=== PATIENT | male | born 1945 | race Caucasian/White ===

== ENCOUNTER 2018-05-08 11:41 | Inpatient (IN) | payer MEDICARE, SELFPAY ==
[2018-05-08] VITALS (16 sets, daily range): BP systolic 113–132; BP diastolic 80–91; PULSE 104–142; RESP 11–20; TEMP 36.6–36.9; O2SAT 97–100; BMI 36.8; BMI 37.6; BMI 37.7
--- NOTE | 2018-05-08 12:24 | EKG12_ITS ---
Test Reason : A FIB Blood Pressure : / mmHG Vent. Rate : 114 BPM Atrial Rate : 119 BPM P-R Int : 000 ms QRS Dur : 094 ms QT Int : 334 ms P-R-T Axes : 000 -04 036 degrees QTc Int : 460 ms Atrial fibrillation with rapid ventricular response with premature ventricular or aberrantly conducte d complexes Septal infarct , age undetermined Abnormal ECG When compared with ECG of 13-NOV-2009 19:53, Atrial fibrillation has replaced Sinus rhythm Vent. rate has increased BY 40 BPM Septal infarct is now Present T wave inversion no longer evident in Inferior leads Confirmed by HEATHER RUBIN ([id number]), metropolitan editor DALLAS SOLER ([id number]) on 05/17/2018 5:07:18 PM Referred By: JARAD GUTIERREZ Confirmed By:HEATHER RUBIN
--- NOTE | 2018-05-08 12:25 | RAD_ITS ---
STUDY: X-RAY CHEST REASON FOR EXAM: Male, 72 years old. Cough TECHNIQUE: Frontal and lateral view COMPARISON: None. FINDINGS: Sternotomy wires are noted. The lungs are expanded. Pulmonary interstitial prominence, right more than left. Normal size heart. Normal mediastinum and ryanne. Normal visualized pulmonary arteries. Normal visualized aortic arch and descending thoracic aorta. Degenerative changes of the thoracic spine. Normal visualized ribs, clavicles, and shoulders. There is no demonstrated abnormality of the visualized soft tissue structures of the upper abdomen. RAD/Chest PA and Lateral IMPRESSION: Bilateral pulmonary interstitial prominence, right more than left. Electronically Signed: Odilon Lombardi DO at 13:31 EST Tel [phone], Service support ,
--- NOTE | 2018-05-08 12:28 | ED.DCSUM_ITS ---
- ER Visit Summary Date of Service: 05/08/18 Chief Complaint: Cough, fever History of Present Illness: The patient is a 72 M 2-day history of worsening cough mild sputum fever T-max 100.1. Chest tightness. Diarrhea for the past 2 days, no recent antibiotics. Nausea vomiting yesterday, no hematemesis. Re ports myalgias. No flu vaccine this year. History of atrial fibrillation on just aspirin and Plavix, history of GI bleed. History of coronary disease and [place] followed by [place]. Went to urgent care sent here due to heart rate 150s. Did not take his A. fib medications this morning. No current nausea. Physical Examination: General: Alert and oriented ?3, no acute distress HEENT: Normocephalic, atraumatic. Moist mucosa membranes Neck: supple, nontender. Cardiovascular: Irregularly irregular, no murmurs Respiratory: Normal breath sounds, symmetric, no distress Abdomen: Soft, nontender, nondistended Extremities: Nontender, minimum lower extremity edema, pulses intact ?4 Neuro: no focal neurological deficits. Test Results: EKG: A. fib rate of 114, no ST or T wave changes. PVCs noted. White count 6.5 hemoglobin 0.7. Creatinine 1.39 troponin 0 0.122. Chest x-ray bilateral lower infiltrates. Influenza negative. Emergency Department Course and Treatment: Patient presents with influenza symptoms along with productive sputum. Does complain of chest aches with his cough. Cardiac history. Cardiac workup initiated. EKG does confirm A. fib with RVR however rate 119 on EKG during monitoring fluctuates from 100s-110s. He did not take his morning metoprolol this was ordered. Chest x-ray notes bilateral lower lobe infiltrate troponin also elevated 0.122. Likely from cardiac strain. White count 6.5. Creatinine 1.39. Flu did return negative, however with pre-valence there is possibility of false negative he is 2 days into symptoms and present with influenza-like symptoms he is given Tamiflu. He does not meet sepsis criteria. He was given Rocephin and Zithromax for community-acquired pneumonia. Aspirin was given due to elevated troponin. [facility] is [facility], will [facility] with the [facility] to stay at this hospital. [facility] cleared patient stay here. Spoke with Dr. Kimball for admission. Discussed heart rate 110s-120s on evaluation. He will manage as an inpatient no additional medicines at this time. Patient with his GI bleed sensitivities not want any additional anticoagulate at this time. Admitted to PCU. Treatment Plan: [] Disposition: Admission Impression: 1. Commit acquired pneumonia 2. A. fib with RVR 3. Chest pain 4. Elevated troponin 5. Influenza-like symptoms This note was generated with [employer] dictation software. It may contain incorrect words, spelling, and punctuation that were not noted in review of the chart prior to signing ED Disposition - Plan for ED Patient: Disposition: Acute Care Hospital [facility] Diagnosis: Community acquired pneumonia, Atrial fibrillation with RVR, Chest pain, Elevated troponin, Influenza-like symptoms Referrals: Fortunato Tesfaye MD [Primary Care Provider] -
[2018-05-08 12:48] LABS: Anion Gap 8 (5-15); BUN 25 mg/dL (7-18); Calcium,Total 8.3 mg/dL (8.5-10.1); Chloride 106 mmol/L (98-107); Creatinine, Serum 1.39 mg/dL (0.70-1.30); EST Glomerular Filtration Rate 54 mL/min (>60); Est Glom Filt Rate - Afr Amer 65 mL/min (>60); Estimated Creatinine Clearance 65.54 ml/min; Glucose 115 mg/dL (74-106); Potassium 3.9 mmol/L (3.5-5.1); Sodium Level 134 mmol/L (136-145)
[2018-05-08 12:54] LABS: Absolute Lymphocyte Count 0.53 X10^3/ul (0.83-4.51); Basophil# 0.01 X10^3/uL; Basophil% 0.2 % (0-1); Eosinophil# 0.03 X10^3/uL; Eosinophils% 0.5 % (0-5); Hematocrit 38.2 % (40-54); Hemoglobin 11.7 g/dl (13.0-16.5); Lymphocyte # 0.53 X10^3/ul (4.0); Lymphocyte % 8.2 % (19-41); Mean Corp Hgb Conc 30.6 g/gl (32-36); Mean Corpuscular Hgb 23.1 pg (27.0-32.0); Mean Corpuscular Volume 75.5 fL (80-94); Monocyte# 0.88 X10^3/uL; Monocyte% 13.6 % (0-10); Neutrophil # 5.03 X10^3/uL (2.7-7.7); Neutrophil % 77.3 % (47-70); Platelet Count 180 K/mm3 (150-450); RBC Distribution Width CV 19.8 % (11.6-14.6); RBC Distribution Width SD 54.1 fl (35.1-43.9); Red Blood Count 5.06 M/mm3 (4.6-6.2); White Blood Count 6.5 K/mm3 (4.4-11.0)
[2018-05-08 12:56] LABS: Differential Indicated SCAN CRITERIA MET; POSITIVE COUNT NO; POSITIVE DIFFERENTIAL YES; POSITIVE MORPHOLOGY NO
[2018-05-08 13:17] LABS: Anisocytosis RARE; Differential Comment SCANNED; Hypochromasia 1+; Microcytosis 1+; Platelet Estimate ADEQUATE (ADEQ)
--- NOTE | 2018-05-08 13:43 | ED.RN ---
Pt assisted to wc then to bathroom. He was able to use bathroom without assist but upon returning to pt was noticeably weakened. He tolerated returning to bed with assist. Physician aware that pt did not tolerate ambulation or standing well.
[2018-05-08] MEDS: Ceftriaxone 1 GM/50 ML BAG IV (13:45)
[2018-05-08] MEDS: Metoprolol Tartrate 100 MG Tablet PO ×2 (13:51→22:47)
[2018-05-08] MEDS: Oseltamivir Phosphate 75 MG Capsule PO (13:51)
[2018-05-08] MEDS: Aspirin 325 MG Tablet PO (13:52)
--- NOTE | 2018-05-08 14:04 | NURSING ---
CALLED [facility]. TALKED TO [facility]. SHE IS REQUESTING CHART TO BE FAXED BEFORE WE CAN TALK TO INTAKE PERSON. FAX [phone]
[2018-05-08 14:05] LABS: International Normalized Ratio 1.2; Prothrombin Time (Protime)PT. 15.3 SECONDS (11.7-14.9)
[2018-05-08 14:06] LABS: Partial Thromboplast Time 37.2 Seconds (24.1-36.2)
--- NOTE | 2018-05-08 14:20 | NURSING ---
FAXED CHART TO [facility]. LABS, RAD, EKG, TSHEET, ECHART AND DR DEJESUS
--- NOTE | 2018-05-08 14:47 | NURSING ---
CALLED [facility]. THEY RECEIVED THE FAX REPORT
--- NOTE | 2018-05-08 14:52 | NURSING ---
[facility] CALL[facility] ER AND G[facility] FOR ADMISSION TO FLOOR. [facility] STATED THEY WILL SET UP FOLLOW UP WITH PT TOMORROW.
--- NOTE | 2018-05-08 14:54 | NURSING ---
DR SANDI CLARK
--- NOTE | 2018-05-08 15:13 | PCM.HP.STD ---
<Matthew Person - Last Filed: 05/08/18 15:13> Problem List (1) Atrial fibrillation with RVR Status: Acute (2) Viral URI Status: Acute (3) Elevated troponin Status: Acute (4) CHF (congestive heart failure) Status: Chronic (5) COPD (chronic obstructive pulmonary disease) Status: Chronic (6) HTN (hypertension) Status: Chronic (7) CAD (coronary artery disease) Status: Acute (8) HLD (hyperlipidemia) Status: Acute (9) Diabetes Status: Acute History of Present Illness Date of Admission: 05/08/18 Chief Complaint: tachycardia The patient is a 72 year old M with pmhx of Afib, CHF, CAD with prior CABG and SD's, COPD, HTN, HLD, DMt2, who was sent to the ER from urgent care with tachycardia rate into the 150 range. He had gone to the urgent care with complaining of 3 days of nonproductive cough, myalgias, nausea, vomiting, diarrhea, and SOB. He also checked his temp at home as he felt feverish and noted it to be 100.4. He has not noticed increased edema, PND, or orthopnea. He Does not have a fever here. He has been somewhat lightheaded, though he does not feel palpitations. He was given metoprolol in the ER but still has a rate into the 130s on the monitor. [] Past Medical History Past Medical History (Chronic Problems): Chronic Problems CHF (congestive heart failure) (Chronic) COPD (chronic obstructive pulmonary disease) (Chronic) HTN (hypertension) (Chronic) Allergies codeine Adverse Reaction (Verified 05/08/18 11:42) Unknown Home Medications: Ambulatory Orders Medication Instructions Recorded Albuterol Inhaler [Ventolin Hfa 2 puff INHALATION Q6H PRN PRN 05/08/18 (SP)] Benzonatate 100 mg PO Q6H PRN 05/08/18 Clopidogrel Bisulfate [Plavix] 75 mg PO DAILY 05/08/18 Furosemide [Lasix] 40 mg PO DAILY 05/08/18 Isosorbide Mononitrate [Imdur] 60 mg PO DAILY 05/08/18 Metformin HCl 500 mg PO DAILY 05/08/18 Metoprolol Tartrate [Lopressor 100 mg PO BID 05/08/18 (Beta Crystal)] [place]-3/Dha/Epa/Fish Oil [Fish Oil 1 each PO DAILY 05/08/18 1,000 mg Softgel] Ranolazine [Ranexa] 1,000 mg PO DAILY 05/08/18 Sucralfate 1 gm PO TID 05/08/18 Tamsulosin HCl [Flomax] 0.4 mg PO DAILY 05/08/18 Topiramate [Topamax] 150 mg PO BID 05/08/18 Vitamin B Complex/Folic Acid 1 tab PO DAILY 05/08/18 [B-Stress Capsules] Surgical History: no surgical history Psychiatric History: No pertinent psych hx Lives: Alone Smoking Status: Former smoker Tobacco Use: Non-smoker Alcohol: None Drugs: None - *Family History Maternal History Items: Cancer Paternal History Items: Heart Disease Review of Systems Constitutional: Denies: Chills, Fever, Weight Change HEENT: Denies: Head Aches, Sinus Congestion, Sinus Drainage Cardiovascular: Denies: Chest Pain, Palpitations Respiratory: Reports: Cough, Shortness of Breath, Shortness of breath at rest, Shortness of breath upon exertion. Denies: Sputum production, Wheezing Gastrointestinal: Denies: Abdominal Pain, Nausea, Vomiting Genitourinary: Denies: Dysuria Musculoskeletal: Denies: Joint Pain, Joint Tenderness Skin: Denies: Rash, Wounds Neurological: Denies: Numbness, Tingling, Focal weakness Psychiatric: Denies: Anxiety, Depression, Homicidal Ideations, Suicidal Ideations Hematologic/ Lymphatic: Denies: Easy Bruising, Easy Bleeding VTE Information - Inpt Only VTE Present on Admission: No VTE Mechan Device Prophylaxis: None VTE Pharm Prophylaxis ordered?: Yes Patient Problems: Active and Suspected Problems Community acquired pneumonia (Acute) Atrial fibrillation with RVR (Acute) Chest pain (Acute) Elevated troponin (Acute) Influenza-like symptoms (Acute) CAD (coronary artery disease) (Acute) HLD (hyperlipidemia) (Acute) Diabetes (Acute) Viral URI (Acute) - Physical Exam General: Alert, Oriented x3, Cooperative HEENT: Atraumatic, PERRLA, EOMI, Normocephalic Neck: Supple, No JVD, Negative Carotid Bruits Lungs: Clear to auscultation, Normal air movement, Rales - fine rales right lung upper and lower conroy. No wheezing Cardiovascular: Regular rate, No murmurs Abdomen: Bowel Sounds Present, Soft, Non Tender Extremities: No edema, Capillary Refill Less than 3 Seconds Skin: No rashes, No breakdown Musculoskeletal: No Tenderness to Palpation of Joints or Extremities Neurological: Cranial nerves II-XII grossly intact Psych/Mental Status: Normal Affect, Appropriate, Alert and oriented to time, place, person, mood and affect Vital Signs Temp Pulse Resp BP Pulse Ox 98.0 F 108 H 17 123/86 H 99 05/08/18 14:40 05/08/18 14:59 05/08/18 14:59 05/08/18 14:59 05/08/18 14:59 Oxygen Delivery Method Room Air Weight: 326 lb 15.128 oz Body Mass Index (BMI) 36.8 Microbiology Past 72 Hours 05/08/18 12:55 Influenza Types A,B Direct FA (JOCY) - Final Mucosa - Nose Laboratory Tests Past 24 Hrs 05/08/18 05/08/18 05/08/18 11:55 11:55 13:35 WBC 6.5 RBC 5.06 Hgb 11.7 L Hct 38.2 L MCV 75.5 L MCH 23.1 L MCHC 30.6 L RDW 19.8 H RDW Differential 54.1 H Plt Count 180 MPV 10.0 Immature Gran % (Auto) 0.200 Neut % (Auto) 77.3 H Lymph % (Auto) 8.2 L [place] % (Auto) 13.6 H Eos % (Auto) 0.5 Baso % (Auto) 0.2 Absolute Neuts (auto) 5.0 Absolute Lymphs (auto) 0.53 L Total Counted Not Reportable Differential Comment SCANNED Platelet Estimate ADEQUATE Hypochromasia 1+ Anisocytosis RARE Microcytosis 1+ PT 15.3 H INR 1.2 APTT 37.2 H Sodium 134 L Potassium 3.9 Chloride 106 Carbon Dioxide 20.0 L Anion Gap 8 BUN 25 H Creatinine 1.39 H Estim Creat Clear Calc 65.54 Est GFR (MDRD) Af Amer 65 Est GFR (MDRD) Non-Af 54 L BUN/Creatinine Ratio 18.0 Glucose 115 H Calcium 8.3 L Troponin I 0.122 H Assessment/Plan All Active Problems Community acquired pneumonia (Acute) Atrial fibrillation with RVR (Acute) Chest pain (Acute) Elevated troponin (Acute) Influenza-like symptoms (Acute) CAD (coronary artery disease) (Acute) HLD (hyperlipidemia) (Acute) Diabetes (Acute) Viral URI (Acute) 1. Afib with RVR, suspect 2/2 acute viral syndrome - given additional metoprolol in the ER. Presented from urgent care with rate into the 150s. Plan to continue increased metoprolol at this point and will consider additional agents if he remains uncontrolled. Troponin is indeterminate, will cycle. Obtain echocardiogram. 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 Maintain on tele. -He does not take oral anticoagulation 2/2 hx of GI bleed. 2. Acute viral URI - presents with viral flu like symptoms. Flu screen was negative and symptoms have gone on for the past 3 days. He was given tamiflu in the ER. will defer further tx and obtain respiratory panel. Provide supportive care. He is not hypoxic and not wheezy. CXR reviewed and without clear acute process. 3. COPD - no acute exacerbation. continue albuterol. 4. Hx CHF unclear subtype - not acute exacerbation at this time. Continue home lasix. 5. Suspected CKD stage 3 - unclear baseline. Will trend. 6. Mild anemia with microcytosis - trend 7. CAD - prior CABG. Continue plan as per #1 cycle enzymes and get echo. 8. HTN, HLD - home meds 9. DMt2 - hold metformin with unclear renal function and provide SSI. DVT ppx: heparin DC planning: ptot, lives alone. likely no home going needs. This patient was seen by Matthew Person PA-C under the supervision of Doctor Jigar. <Ke Kimball - Last Filed: 05/08/18 15:54> Problem List (1) Atrial fibrillation with RVR Status: Acute (2) Elevated troponin Status: Acute History of Present Illness Chief Complaint: malaise, fever, diarrhea, vomiting, myalgias. The patient is a 72 year old M presents with a 3-day history of days, vomiting, diarrhea, myalgias. Presented to the emergency room and was found to be in atrial fibrillation with RVR. Did take his daily dose of metoprolol which did help his heart rate but still maintained into the 1 teens and 120s. Chest x-ray report was concerning for infiltrates and patient did receive Tamiflu (despite negative rapid flu) Rocephin and azithromycin. Troponins were elevated as well at 0.1-2. Patient was not having chest pain. Patient does have known history of CAD with a CABG in the past. [] Past Medical History Medical History: Medical History (Last Updated 05/08/18 @ 15:49 by Ke Kimball DO) CAD (coronary artery disease) I25.10 CHF (congestive heart failure) I50.9 COPD (chronic obstructive pulmonary disease) J44.9 HTN (hypertension) I10 Allergies codeine Adverse Reaction (Verified 05/08/18 11:42) Unknown Surgical History: Surgical History (Last Updated 05/08/18 @ 15:48 by Ke Kimball DO) Hx of CABG Z95.1 Psychiatric History: No pertinent psych hx Lives: Alone Smoking Status: Former smoker Tobacco Use: Non-smoker Alcohol: None Drugs: None - *Family History Maternal History Items: Cancer Paternal History Items: Heart Disease Review of Systems Constitutional: Denies: Chills, Fever, Weight Change HEENT: Denies: Head Aches, Sinus Congestion, Sinus Drainage Cardiovascular: Denies: Chest Pain, Palpitations Respiratory: Reports: Cough, Shortness of Breath, Shortness of breath at rest, Shortness of breath upon exertion. Denies: Sputum production, Wheezing Gastrointestinal: Denies: Abdominal Pain, Nausea, Vomiting Genitourinary: Denies: Dysuria Musculoskeletal: Denies: Joint Pain, Joint Tenderness Skin: Denies: Rash, Wounds Neurological: Denies: Focal weakness, Numbness, Tingling Psychiatric: Denies: Anxiety, Depression, Homicidal Ideations, Suicidal Ideations Hematologic/ Lymphatic: Denies: Easy Bruising, Easy Bleeding, Hx of blood clot VTE Information - Inpt Only VTE Present on Admission: No VTE Mechan Device Prophylaxis: None VTE Pharm Prophylaxis ordered?: Yes - Physical Exam General: Alert, Cooperative, No apparent distress HEENT: Atraumatic, Normocephalic Neck: No Nodes, Thyroid Normal Size and Texture Lungs: Rales, - - Clear on the left Cardiovascular: Irregular Rate, Tachycardic Abdomen: Bowel Sounds Present, Soft, Non Tender, Non-Distended Extremities: No edema, No Calf Tenderness Skin: No rashes, No breakdown Musculoskeletal: No Tenderness to Palpation of Joints or Extremities, No Muscle Wasting Psych/Mental Status: Normal Affect, Appropriate, Alert and oriented to time, place, person, mood and affect Vital Signs Temp Pulse Resp BP Pulse Ox 36.7 C 125 H 20 H 119/86 H 97 03/09/19 15:24 05/08/18 15:24 05/08/18 15:24 05/08/18 15:24 05/08/18 15:24 Oxygen Delivery Method Room Air Weight: 148.3 kg Body Mass Index (BMI) 36.8 Microbiology Past 72 Hours 05/08/18 12:55 Influenza Types A,B Direct FA (JOCY) - Final Mucosa - Nose Laboratory Tests Past 24 Hrs 05/08/18 05/08/18 05/08/18 11:55 11:55 13:35 WBC 6.5 RBC 5.06 Hgb 11.7 L Hct 38.2 L MCV 75.5 L MCH 23.1 L MCHC 30.6 L RDW 19.8 H RDW Differential 54.1 H Plt Count 180 MPV 10.0 Immature Gran % (Auto) 0.200 Neut % (Auto) 77.3 H Lymph % (Auto) 8.2 L [place] % (Auto) 13.6 H Eos % (Auto) 0.5 Baso % (Auto) 0.2 Absolute Neuts (auto) 5.0 Absolute Lymphs (auto) 0.53 L Total Counted Not Reportable Differential Comment SCANNED Platelet Estimate ADEQUATE Hypochromasia 1+ Anisocytosis RARE Microcytosis 1+ PT 15.3 H INR 1.2 APTT 37.2 H Sodium 134 L Potassium 3.9 Chloride 106 Carbon Dioxide 20.0 L Anion Gap 8 BUN 25 H Creatinine 1.39 H Estim Creat Clear Calc 65.54 Est GFR (MDRD) Af Amer 65 Est GFR (MDRD) Non-Af 54 L BUN/Creatinine Ratio 18.0 Glucose 115 H Calcium 8.3 L Troponin I 0.122 H Chest x-ray reviewed and shows chronic changes. Essentially unchanged from 2009. EKG showed atrial fibrillation with RVR with a rate of 114. Anterior Q waves and one solitary PVC. Assessment/Plan Patient seen and examined independently. Data reviewed. I agree with the above note by the physician administrative assistant data entry. 1. Atrial fibrillation with RVR: Suspect likely reactive due to the patient's recent illness. Receive metoprolol his heart rate has improved. We will continue with metoprolol on the floor but also had IV metoprolol as monitor the patient on telemetry. Check an echocardiogram. [facility] We will continue with Lovenox weight-based for now. Review records from [facility] as to reason for continue to hold anticoagulation. [id number] score of 4. 2. Elevated troponin: Suspect demand ischemia. Patient's not having any chest pain. Likely demand due to the age fibrillation and RVR in the recent infection. We will cycle troponins, check records from [place] and check an echocardiogram. 3. Upper respiratory infection, presumed: Rapid influenza was negative. Will check respiratory viral panel. Supportive management. Review of the chest x-ray I do not see any pneumonia therefore pneumonia I feel is ruled out. In fluids negative. Even if patient were had flu he is outside the window for Tamiflu to be initiated anyways. 4. CHF: Unclear type. Compensated at this time. Echocardiogram ordered for the above 2 issues. 5. DVT prophylaxis: Patient will be anticoagulated with Lovenox for now. Code Visit Inpatient E&M: 54023 Init Hosp L3
--- NOTE | 2018-05-08 15:19 | HP.PCM_ITS ---
<Matthew Person - Last Filed: 05/08/18 15:13> Problem List (1) Atrial fibrillation with RVR Status: Acute (2) Viral URI Status: Acute (3) Elevated troponin Status: Acute (4) CHF (congestive heart failure) Status: Chronic (5) COPD (chronic obstructive pulmonary disease) Status: Chronic (6) HTN (hypertension) Status: Chronic (7) CAD (coronary artery disease) Status: Acute (8) HLD (hyperlipidemia) Status: Acute (9) Diabetes Status: Acute History of Present Illness Date of Admission: 05/08/18 Chief Complaint: tachycardia The patient is a 72 year old M with pmhx of Afib, CHF, CAD with prior CABG and [place]'s, COPD, HTN, HLD, DMt2, who was sent to the ER from urgent care with tachycardia rate into the 150 range. He had gone to the urgent care with complaining of 3 days of nonproductive cough, myalgias, nausea, vomiting, diarrhea, and SOB. He also checked his temp at home as he felt feverish and noted it to be 100.4. He has not noticed increased edema, PND, or orthopnea. He Does not have a fever here. He has been somewhat lightheaded, though he does not feel palpitations. He was given metoprolol in the ER but still has a rate into the 130s on the monitor. [] Past Medical History Past Medical History (Chronic Problems): Chronic Problems CHF (congestive heart failure) (Chronic) COPD (chronic obstructive pulmonary disease) (Chronic) HTN (hypertension) (Chronic) Allergies codeine Adverse Reaction (Verified 05/08/18 11:42) Unknown Home Medications: Ambulatory Orders Medication Instructions Recorded Albuterol Inhaler [Ventolin Hfa 2 puff INHALATION Q6H PRN PRN 05/08/18 (SP)] Benzonatate 100 mg PO Q6H PRN 05/08/18 Clopidogrel Bisulfate [Plavix] 75 mg PO DAILY 05/08/18 Furosemide [Lasix] 40 mg PO DAILY 05/08/18 Isosorbide Mononitrate [Imdur] 60 mg PO DAILY 05/08/18 Metformin HCl 500 mg PO DAILY 05/08/18 Metoprolol Tartrate [Lopressor 100 mg PO BID 05/08/18 (Beta Crystal)] [place]-3/Dha/Epa/Fish Oil [Fish Oil 1 each PO DAILY 05/08/18 1,000 mg Softgel] Ranolazine [Ranexa] 1,000 mg PO DAILY 05/08/18 Sucralfate 1 gm PO TID 05/08/18 Tamsulosin HCl [Flomax] 0.4 mg PO DAILY 05/08/18 Topiramate [Topamax] 150 mg PO BID 05/08/18 Vitamin B Complex/Folic Acid 1 tab PO DAILY 05/08/18 [B-Stress Capsules] Surgical History: no surgical history Psychiatric History: No pertinent psych hx Lives: Alone Smoking Status: Former smoker Tobacco Use: Non-smoker Alcohol: None Drugs: None - *Family History Maternal History Items: Cancer Paternal History Items: Heart Disease Review of Systems Constitutional: Denies: Chills, Fever, Weight Change HEENT: Denies: Head Aches, Sinus Congestion, Sinus Drainage Cardiovascular: Denies: Chest Pain, Palpitations Respiratory: Reports: Cough, Shortness of Breath, Shortness of breath at rest, Shortness of breath upon exertion. Denies: Sputum production, Wheezing Gastrointestinal: Denies: Abdominal Pain, Nausea, Vomiting Genitourinary: Denies: Dysuria Musculoskeletal: Denies: Joint Pain, Joint Tenderness Skin: Denies: Rash, Wounds Neurological: Denies: Numbness, Tingling, Focal weakness Psychiatric: Denies: Anxiety, Depression, Homicidal Ideations, Suicidal Ideations Hematologic/ Lymphatic: Denies: Easy Bruising, Easy Bleeding VTE Information - Inpt Only VTE Present on Admission: No VTE Mechan Device Prophylaxis: None VTE Pharm Prophylaxis ordered?: Yes Patient Problems: Active and Suspected Problems Community acquired pneumonia (Acute) Atrial fibrillation with RVR (Acute) Chest pain (Acute) Elevated troponin (Acute) Influenza-like symptoms (Acute) CAD (coronary artery disease) (Acute) HLD (hyperlipidemia) (Acute) Diabetes (Acute) Viral URI (Acute) - Physical Exam General: Alert, Oriented x3, Cooperative HEENT: Atraumatic, PERRLA, EOMI, Normocephalic Neck: Supple, No JVD, Negative Carotid Bruits Lungs: Clear to auscultation, Normal air movement, Rales - fine rales right lung upper and lower conroy. No wheezing Cardiovascular: Regular rate, No murmurs Abdomen: Bowel Sounds Present, Soft, Non Tender Extremities: No edema, Capillary Refill Less than 3 Seconds Skin: No rashes, No breakdown Musculoskeletal: No Tenderness to Palpation of Joints or Extremities Neurological: Cranial nerves II-XII grossly intact Psych/Mental Status: Normal Affect, Appropriate, Alert and oriented to time, place, person, mood and affect Vital Signs Temp Pulse Resp BP Pulse Ox 98.0 F 108 H 17 123/86 H 99 05/08/18 14:40 05/08/18 14:59 05/08/18 14:59 05/08/18 14:59 05/08/18 14:59 Oxygen Delivery Method Room Air Weight: 326 lb 15.128 oz Body Mass Index (BMI) 36.8 Microbiology Past 72 Hours 05/08/18 12:55 Influenza Types A,B Direct FA (JOCY) - Final Mucosa - Nose Laboratory Tests Past 24 Hrs 05/08/18 05/08/18 05/08/18 11:55 11:55 13:35 WBC 6.5 RBC 5.06 Hgb 11.7 L Hct 38.2 L MCV 75.5 L MCH 23.1 L MCHC 30.6 L RDW 19.8 H RDW Differential 54.1 H Plt Count 180 MPV 10.0 Immature Gran % (Auto) 0.200 Neut % (Auto) 77.3 H Lymph % (Auto) 8.[address] [place] % (Auto) 13.6 H Eos % (Auto) 0.5 Baso % (Auto) 0.2 Absolute Neuts (auto) 5.0 Absolute Lymphs (auto) 0.53 L Total Counted Not Reportable Differential Comment SCANNED Platelet Estimate ADEQUATE Hypochromasia 1+ Anisocytosis RARE Microcytosis 1+ PT 15.3 H INR 1.2 APTT 37.2 H Sodium 134 L Potassium 3.9 Chloride 106 Carbon Dioxide 20.0 L Anion Gap 8 BUN 25 H Creatinine 1.39 H Estim Creat Clear Calc 65.54 Est GFR (MDRD) Af Amer 65 Est GFR (MDRD) Non-Af 54 L BUN/Creatinine Ratio 18.0 Glucose 115 H Calcium 8.3 L Troponin I 0.122 H Assessment/Plan All Active Problems Community acquired pneumonia (Acute) Atrial fibrillation with RVR (Acute) Chest pain (Acute) Elevated troponin (Acute) Influenza-like symptoms (Acute) CAD (coronary artery disease) (Acute) HLD (hyperlipidemia) (Acute) Diabetes (Acute) Viral URI (Acute) 1. Afib with RVR, suspect 2/2 acute viral syndrome - given additional metoprolol in the ER. Presented from urgent care with rate into the 150s. Plan to continue increased metoprolol at this point and will consider additional agents if he remains uncontrolled. Troponin is indeterminate, will cycle. Obtain echocardiogram. 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 Maintain on tele. -He does not take oral anticoagulation 2/2 hx of GI bleed. 2. Acute viral URI - presents with viral flu like symptoms. Flu screen was negative and symptoms have gone on for the past 3 days. He was given tamiflu in the ER. will defer further tx and obtain respiratory panel. Provide supportive care. He is not hypoxic and not wheezy. CXR reviewed and without clear acute process. 3. COPD - no acute exacerbation. continue albuterol. 4. Hx CHF unclear subtype - not acute exacerbation at this time. Continue home lasix. 5. Suspected CKD stage 3 - unclear baseline. Will trend. 6. Mild anemia with microcytosis - trend 7. CAD - prior CABG. Continue plan as per #1 cycle enzymes and get echo. 8. HTN, HLD - home meds 9. DMt2 - hold metformin with unclear renal function and provide SSI. DVT ppx: heparin DC planning: ptot, lives alone. likely no home going needs. This patient was seen by Matthew Person PA-C under the supervision of Doctor Jigar. <Ke Kimball - Last Filed: 05/08/18 15:54> Problem List (1) Atrial fibrillation with RVR Status: Acute (2) Elevated troponin Status: Acute History of Present Illness Chief Complaint: malaise, fever, diarrhea, vomiting, myalgias. The patient is a 72 year old M presents with a 3-day history of days, vomiting, diarrhea, myalgias. Presented to the emergency room and was found to be in atrial fibrillation with RVR. Did take his daily dose of metoprolol which did help his heart rate but still maintained into the 1 teens and 120s. Chest x-ray report was concerning for infiltrates and patient did receive Tamiflu (despite negative rapid flu) Rocephin and azithromycin. Troponins were elevated as well at 0.1-2. Patient was not having chest pain. Patient does have known history of CAD with a CABG in the past. [] Past Medical History Medical History: Medical History (Last Updated 05/08/18 @ 15:49 by Ke Kimball DO) CAD (coronary artery disease) I25.10 CHF (congestive heart failure) I50.9 COPD (chronic obstructive pulmonary disease) J44.9 HTN (hypertension) I10 Allergies codeine Adverse Reaction (Verified 05/08/18 11:42) Unknown Surgical History: Surgical History (Last Updated 05/08/18 @ 15:48 by Ke Kimball DO) Hx of CABG Z95.1 Psychiatric History: No pertinent psych hx Lives: Alone Smoking Status: Former smoker Tobacco Use: Non-smoker Alcohol: None Drugs: None - *Family History Maternal History Items: Cancer Paternal History Items: Heart Disease Review of Systems Constitutional: Denies: Chills, Fever, Weight Change HEENT: Denies: Head Aches, Sinus Congestion, Sinus Drainage Cardiovascular: Denies: Chest Pain, Palpitations Respiratory: Reports: Cough, Shortness of Breath, Shortness of breath at rest, Shortness of breath upon exertion. Denies: Sputum production, Wheezing Gastrointestinal: Denies: Abdominal Pain, Nausea, Vomiting Genitourinary: Denies: Dysuria Musculoskeletal: Denies: Joint Pain, Joint Tenderness Skin: Denies: Rash, Wounds Neurological: Denies: Focal weakness, Numbness, Tingling Psychiatric: Denies: Anxiety, Depression, Homicidal Ideations, Suicidal Ideations Hematologic/ Lymphatic: Denies: Easy Bruising, Easy Bleeding, Hx of blood clot VTE Information - Inpt Only VTE Present on Admission: No VTE Mechan Device Prophylaxis: None VTE Pharm Prophylaxis ordered?: Yes - Physical Exam General: Alert, Cooperative, No apparent distress HEENT: Atraumatic, Normocephalic Neck: No Nodes, Thyroid Normal Size and Texture Lungs: Rales, - - Clear on the left Cardiovascular: Irregular Rate, Tachycardic Abdomen: Bowel Sounds Present, Soft, Non Tender, Non-Distended Extremities: No edema, No Calf Tenderness Skin: No rashes, No breakdown Musculoskeletal: No Tenderness to Palpation of Joints or Extremities, No Muscle Wasting Psych/Mental Status: Normal Affect, Appropriate, Alert and oriented to time, place, person, mood and affect Vital Signs Temp Pulse Resp BP Pulse Ox 36.7 C 125 H 20 H 119/86 H 97 03/09/19 15:24 05/08/18 15:24 05/08/18 15:24 05/08/18 15:24 05/08/18 15:24 Oxygen Delivery Method Room Air Weight: 148.3 kg Body Mass Index (BMI) 36.8 Microbiology Past 72 Hours 05/08/18 12:55 Influenza Types A,B Direct FA (JOCY) - Final Mucosa - Nose Laboratory Tests Past 24 Hrs 05/08/18 05/08/18 05/08/18 11:55 11:55 13:35 WBC 6.5 RBC 5.06 Hgb 11.7 L Hct 38.2 L MCV 75.5 L MCH 23.1 L MCHC 30.6 L RDW 19.8 H RDW Differential 54.1 H Plt Count 180 MPV 10.0 Immature Gran % (Auto) 0.200 Neut % (Auto) 77.3 H Lymph % (Auto) 8.[address] % (Auto) 13.6 H Eos % (Auto) 0.5 Baso % (Auto) 0.2 Absolute Neuts (auto) 5.0 Absolute Lymphs (auto) 0.53 L Total Counted Not Reportable Differential Comment SCANNED Platelet Estimate ADEQUATE Hypochromasia 1+ Anisocytosis RARE Microcytosis 1+ PT 15.3 H INR 1.2 APTT 37.2 H Sodium 134 L Potassium 3.9 Chloride 106 Carbon Dioxide 20.0 L Anion Gap 8 BUN 25 H Creatinine 1.39 H Estim Creat Clear Calc 65.54 Est GFR (MDRD) Af Amer 65 Est GFR (MDRD) Non-Af 54 L BUN/Creatinine Ratio 18.0 Glucose 115 H Calcium 8.3 L Troponin I 0.122 H Chest x-ray reviewed and shows chronic changes. Essentially unchanged from 2009. EKG showed atrial fibrillation with RVR with a rate of 114. Anterior Q waves and one solitary PVC. Assessment/Plan Patient seen and examined independently. Data reviewed. I agree with the above note by the physician tiler's assistant. 1. Atrial fibrillation with RVR: Suspect likely reactive due to the patient's recent illness. Receive metoprolol his heart rate has improved. We will continue with metoprolol on the floor but also had IV metoprolol as monitor the patient on telemetry. Check an echocardiogram. [facility] We will continue with Lovenox weight-based for now. Review records from [facility] as to reason for continue to hold anticoagulation. [id number] score of 4. 2. Elevated troponin: Suspect demand ischemia. Patient's not having any chest pain. Likely demand due to the age fibrillation and RVR in the recent infection. We will cycle troponins, check records from [facility] and check an echocardiogram. 3. Upper respiratory infection, presumed: Rapid influenza was negative. Will check respiratory viral panel. Supportive management. Review of the chest x- ray I do not see any pneumonia therefore pneumonia I feel is ruled out. In fluids negative. Even if patient were had flu he is outside the window for Tamiflu to be initiated anyways. 4. CHF: Unclear type. Compensated at this time. Echocardiogram ordered for the above 2 issues. 5. DVT prophylaxis: Patient will be anticoagulated with Lovenox for now. Code Visit Inpatient E&M: 45028 Init Hosp L3
--- NOTE | 2018-05-08 15:45 | ED.RN ---
WAITING TO HEAR FROM FLOOR IF THEY ARE READY FOR THE PT.
[2018-05-08] MEDS: Metoprolol Tartrate 5 MG/5 ML Vial IV (18:25)
[2018-05-08 19:53] LABS: D-Dimer Quantitative (DVT/PE) 1.46 FEU/ug/m (0.27-0.49)
--- NOTE | 2018-05-08 21:16 | CT_ITS ---
STUDY: CTA CHEST REASON FOR EXAM: Male, 72 years old. Shortness of breath. Possible pulmonary embolism. RADIATION DOSAGE (If Supplied By Facility): CTDIvol = ( 41.74 ) mGy, DLP = ( 893.13 ) mGycm TECHNIQUE: The examination was performed with the intravenous administration of Isovue 370 100 IV. Post-processing of the angiographic images was performed, with multiplanar reformation and 3D reconstruction. Individualized dose optimization techniques were used for this CT. COMPARISON: None. FINDINGS: Normal enhancement of the main pulmonary artery and right and left pulmonary arteries. There is suboptimal evaluation of the peripheral branches due to significant artifacts and suboptimal enhancement. There is no demonstrated pulmonary embolism. There is atherosclerotic tortuosity of the aortic arch and descending thoracic aorta. There is no demonstrated aortic dissection. The heart is borderline in size. There is no evidence of pericardial effusion. Sternal cerclage wires and vascular clips are present from a prior sternotomy and coronary artery bypass graft procedure (CABG). There are prominent mediastinal nodes in the aortopulmonic window and anterior mediastinum. There are small nodes in the right hilar region. Normal visualized trachea and bronchi. The lungs are well expanded. There are prominent interstitial markings in the lower lungs probably due to scarring. There are bronchiectatic changes in the lower lobes. Cystic fibrotic changes are seen in the peripheral aspect of the lungs worse in the right upper lobe. There is mild infiltrate/atelectasis in the left upper lobe. There are no pleural effusions. There is a prominent density in the right retroareolar region. The visualized bony structures demonstrate compression fractures of T12 and L1 vertebrae of undetermined age. The visualized portions of the upper abdomen demonstrate partially visualized right renal cyst. CT/CTA Chest W/WO Contrast IMPRESSION: 1. No evidence of central pulmonary embolism. Suboptimal evaluation of the peripheral branches. 2. Bronchiectatic and fibrotic changes. 3. Mild left upper lobe infiltrate/atelectasis. 4. Prominent mediastinal nodes which could be reactive. 5. Questionable density/mass in the right retroareolar region. Correlation with clinical findings and right breast ultrasound are recommended. Electronically Signed: Chris Houser MD at 23:40 EST Tel , Service support ,
[2018-05-08] MEDS: Enoxaparin 150 MG/ML Syringe SC (21:42)
[2018-05-08] MEDS: Topiramate 50 MG Tablet 150 MG PO (21:42)
[2018-05-09] VITALS (15 sets, daily range): BP systolic 91–132; BP diastolic 42–84; PULSE 72–115; RESP 16–20; TEMP 36.6–37; O2SAT 94–100
[2018-05-09] MEDS: Acetaminophen 325 MG Tablet 650 MG PO (03:55)
[2018-05-09] MEDS: Sucralfate 1 GM Tablet PO ×3 (06:34→17:57)
[2018-05-09 08:10] LABS: Thyroid Stim Hormone (TSH) 1.24 uIU/mL (0.358-3.74)
[2018-05-09] MEDS: Tamsulosin HCl 0.4 MG Capsule PO (08:28)
[2018-05-09] MEDS: Isosorbide Mononitrate 60 MG Tablet PO (08:28)
[2018-05-09] MEDS: Furosemide 40 MG Tablet PO (08:28)
[2018-05-09] MEDS: Enoxaparin 150 MG/ML Syringe SC (08:30)
[2018-05-09] MEDS: Clopidogrel Bisulfate 75 MG Tablet PO (08:30)
[2018-05-09] MEDS: Ranolazine 500 MG Tablet 1000 MG PO (08:30)
[2018-05-09] MEDS: Topiramate 50 MG Tablet 150 MG PO ×2 (08:31→21:01)
[2018-05-09] MEDS: 0.9% Saline Lock 10 ML Syringe IV ×2 (08:31→14:55)
[2018-05-09 11:26] LABS: Hematocrit 34.7 % (40-54); Hemoglobin 10.5 g/dl (13.0-16.5); Mean Corpuscular Volume 76.3 fL (80-94); Red Blood Count 4.55 M/mm3 (4.6-6.2); White Blood Count 4.9 K/mm3 (4.4-11.0)
[2018-05-09 11:27] LABS: Absolute Lymphocyte Count 0.53 X10^3/ul (0.83-4.51); Absolute Neutrophil Count 3.5 X10^3/uL (2.0-7.7); Basophil# 0.01 X10^3/uL; Basophil% 0.2 % (0-1); Differential Indicated SCAN CRITERIA MET; Eosinophil# 0.18 X10^3/uL; Eosinophils% 3.7 % (0-5); Lymphocyte # 0.53 X10^3/ul (4.0); Lymphocyte % 10.8 % (19-41); Mean Corp Hgb Conc 30.3 g/gl (32-36); Mean Corpuscular Hgb 23.1 pg (27.0-32.0); Mean Platelet Vol. 9.5 fl (6.2-12.0); Monocyte# 0.73 X10^3/uL; Monocyte% 14.8 % (0-10); Neutrophil # 3.46 X10^3/uL (2.7-7.7); Neutrophil % 70.3 % (47-70); POSITIVE COUNT NO; POSITIVE DIFFERENTIAL YES; POSITIVE MORPHOLOGY NO; Platelet Count 148 K/mm3 (150-450); RBC Distribution Width CV 19.9 % (11.6-14.6); RBC Distribution Width SD 55.4 fl (35.1-43.9)
[2018-05-09 11:40] LABS: Platelet Estimate ADEQUATE (ADEQ)
[2018-05-09 11:41] LABS: Hypochromasia 1+; Microcytosis 1+; Ovalocyte RARE
[2018-05-09 11:53] LABS: Anion Gap 9 (5-15); BUN 24 mg/dL (7-18); BUN/Creat Ratio 18.9 RATIO (10-20); Calcium,Total 8.2 mg/dL (8.5-10.1); Chloride 107 mmol/L (98-107); Creatinine, Serum 1.27 mg/dL (0.70-1.30); EST Glomerular Filtration Rate 60 mL/min (>60); Est Glom Filt Rate - Afr Amer 72 mL/min (>60); Estimated Creatinine Clearance 69.97 ml/min; Glucose 97 mg/dL (74-106); Potassium 3.8 mmol/L (3.5-5.1); Sodium Level 137 mmol/L (136-145)
[2018-05-09] MEDS: Metoprolol Tartrate 100 MG Tablet PO ×2 (12:45→21:00)
--- NOTE | 2018-05-09 12:55 | PN_ITS ---
<Matthew Person - Last Filed: 05/09/18 12:47> Patient Problems: Active and Suspected Problems (Last Updated 05/08/18 @ 15:49 by Ke Kimball DO) Community acquired pneumonia (Acute) Atrial fibrillation with RVR (Acute) Chest pain (Acute) Elevated troponin (Acute) Influenza-like symptoms (Acute) CAD (coronary artery disease) (Acute) HLD (hyperlipidemia) (Acute) Diabetes (Acute) Viral URI (Acute) NSTEMI (non-ST elevated myocardial infarction) (Acute) Rectal bleed (Acute) Subjective: The patient had a BM with drops of bright red blood in the toilet water this AM. He states he has a hx of stomach bleeding, and intermittently has blood in his stool, several months prior he had enough blood to turn the water bright red. He says this has been ongoing for years. He does not think it is his hemorrhoids stating that he has not had problems with his hemorrhoids for many years. He does not take coumadin for afib because of his GI bleed hx. Care is at the [facility]. Pt without any chest tightness today, did have some yesterday. No CP. No N/V. Some SOB with exertion. No fever or chills. No palpitations this AM. Rate 110- 120 range this AM. - Physical Exam General: Alert, Oriented x3, Cooperative HEENT: Atraumatic, PERRLA, EOMI, Normocephalic Neck: Supple, No JVD, Negative Carotid Bruits Lungs: Diminished Cardiovascular: No murmurs, Irregular Rate Abdomen: Bowel Sounds Present, Soft, Non Tender, Obese Extremities: No edema, Capillary Refill Less than 3 Seconds Skin: No rashes, No breakdown Musculoskeletal: No Tenderness to Palpation of Joints or Extremities Neurological: Cranial nerves II-XII grossly intact Psych/Mental Status: Normal Affect, Appropriate Vital Signs Temp Pulse Resp BP Pulse Ox 97.8 F 106 H 16 99/56 L 99 05/09/18 08:00 05/09/18 12:45 05/09/18 10:11 05/09/18 12:45 05/09/18 10:11 Oxygen Flow Rate (L/min) 2 Oxygen Delivery Method Room Air Weight: 325 lb 13.491 oz Body Mass Index (BMI) 37.6 Intake and Output for Last 24 Hours 05/07/18 05/08/18 05/10/18 23:59 23:59 00:59 Intake Total 240 / 240 Output Total 700 / 700 Balance -460 / -460 Microbiology Past 72 Hours 05/08/18 19:30 Respiratory Panel (PCR) - Final Mucosa - Nasopharyngeal 05/08/18 12:55 Influenza Types A,B Direct FA (JOCY) - Final Mucosa - Nose Laboratory Tests Past 24 Hrs 05/08/18 05/08/18 05/08/18 11:55 11:55 13:35 WBC 6.5 RBC 5.06 Hgb 11.7 L Hct 38.2 L MCV 75.5 L MCH 23.1 L MCHC 30.6 L RDW 19.8 H RDW Differential 54.1 H Plt Count 180 MPV 10.0 Immature Gran % (Auto) 0.200 Neut % (Auto) 77.3 H Lymph % (Auto) 8.2 L [place] % (Auto) 13.6 H Eos % (Auto) 0.5 Baso % (Auto) 0.2 Absolute Neuts (auto) 5.0 Absolute Lymphs (auto) 0.53 L Total Counted Not Reportable Differential Comment SCANNED Platelet Estimate ADEQUATE Hypochromasia 1+ Anisocytosis RARE Microcytosis 1+ Ovalocytes PT 15.3 H INR 1.2 APTT 37.2 H D-Dimer Quant (PE/DVT) Sodium 134 L Potassium 3.9 Chloride 106 Carbon Dioxide 20.0 L Anion Gap 8 BUN 25 H Creatinine 1.39 H Estim Creat Clear Calc 65.54 Est GFR (MDRD) Af Amer 65 Est GFR (MDRD) Non-Af 54 L BUN/Creatinine Ratio 18.0 Glucose 115 H Calcium 8.3 L Troponin I 0.122 H TSH 05/08/18 05/08/18 05/08/18 15:55 18:08 21:05 WBC RBC Hgb Hct MCV MCH MCHC RDW RDW Differential Plt Count MPV Immature Gran % (Auto) Neut % (Auto) Lymph % (Auto) [place] % (Auto) Eos % (Auto) Baso % (Auto) Absolute Neuts (auto) Absolute Lymphs (auto) Total Counted Differential Comment Platelet Estimate Hypochromasia Anisocytosis Microcytosis Ovalocytes PT INR APTT D-Dimer Quant (PE/DVT) 1.46 H* Sodium Potassium Chloride Carbon Dioxide Anion Gap BUN Creatinine Estim Creat Clear Calc Est GFR (MDRD) Af Amer Est GFR (MDRD) Non-Af BUN/Creatinine Ratio Glucose Calcium Troponin I 0.898 H* 0.898 H* TSH 05/09/18 05/09/18 05/09/18 00:00 06:50 11:14 WBC 4.9 RBC 4.55 L Hgb 10.5 L Hct 34.7 L MCV 76.3 L MCH 23.1 L MCHC 30.3 L RDW 19.9 H RDW Differential 55.4 H Plt Count 148 L MPV 9.5 Immature Gran % (Auto) 0.200 Neut % (Auto) 70.3 H Lymph % (Auto) 10.8 L [place] % (Auto) 14.8 H Eos % (Auto) 3.7 Baso % (Auto) 0.2 Absolute Neuts (auto) 3.5 Absolute Lymphs (auto) 0.53 L Total Counted Not Reportable Differential Comment Platelet Estimate ADEQUATE Hypochromasia 1+ Anisocytosis Microcytosis 1+ Ovalocytes RARE PT INR APTT D-Dimer Quant (PE/DVT) Sodium Potassium Chloride Carbon Dioxide Anion Gap BUN Creatinine Estim Creat Clear Calc Est GFR (MDRD) Af Amer Est GFR (MDRD) Non-Af BUN/Creatinine Ratio Glucose Calcium Troponin I 0.877 H* TSH 1.24 05/09/18 11:14 WBC RBC Hgb Hct MCV MCH MCHC RDW RDW Differential Plt Count MPV Immature Gran % (Auto) Neut % (Auto) Lymph % (Auto) [place] % (Auto) Eos % (Auto) Baso % (Auto) Absolute Neuts (auto) Absolute Lymphs (auto) Total Counted Differential Comment Platelet Estimate Hypochromasia Anisocytosis Microcytosis Ovalocytes PT INR APTT D-Dimer Quant (PE/DVT) Sodium 137 Potassium 3.8 Chloride 107 Carbon Dioxide 21.0 Anion Gap 9 BUN 24 H Creatinine 1.27 Estim Creat Clear Calc 69.97 Est GFR (MDRD) Af Amer 72 Est GFR (MDRD) Non-Af 60 BUN/Creatinine Ratio 18.9 Glucose 97 Calcium 8.2 L Troponin I TSH Medical Necessity - Tobacco Use Smoking Status: Former smoker Tobacco Use: Non-smoker Assessment/Plan All Active Problems (Last Updated 05/08/18 @ 15:49 by Ke Jopperi, DO) Community acquired pneumonia (Acute) Atrial fibrillation with RVR (Acute) Chest pain (Acute) Elevated troponin (Acute) Influenza-like symptoms (Acute) CAD (coronary artery disease) (Acute) HLD (hyperlipidemia) (Acute) Diabetes (Acute) Viral URI (Acute) NSTEMI (non-ST elevated myocardial infarction) (Acute) Rectal bleed (Acute) 1. Afib with RVR, suspect 2/2 acute viral syndrome - rate still trending into 110-120 range with metoprolol. BP borderling. Cardiology consulted. -Provide 1 liter fluid and hold lasix with low BP. -He does not take oral anticoagulation 2/2 hx of GI bleed. 2. NSTEMI - cardiology consulted. on therapeutic lovenox + plavix. Now with blood in stool. [facility] 3. Acute GI bleed - Hgb 11.7-10.5. Check q6h. T&S. General surgery following. Plan will depend on cardiology if plan for intervention and timing. 4. Acute CAP - CT chest with infiltrate. No PE. Resume azithro/rocephin. Resp panel pending. 5. COPD - no acute exacerbation. continue albuterol. 6. Hx CHF unclear subtype - not acute exacerbation at this time. Continue home lasix. 7. Suspected CKD stage 3 - unclear baseline. Will trend. 8. Mild anemia with microcytosis - trend 9. CAD - prior CABG. Continue plan as above 10. HTN, HLD - home meds 11. DMt2 - hold metformin. SSI. DVT ppx: lovenox DC planning: now with NSTEMI and GI bleed. This patient was seen by Matthew Person PA-C under the supervision of Doctor Valadez <Nina Valadez - Last Filed: 05/09/18 16:00> - Physical Exam Vital Signs Temp Pulse Resp BP Pulse Ox 98.6 F 113 H 18 95/42 L 100 05/09/18 14:30 05/09/18 15:00 05/09/18 14:30 05/09/18 14:54 05/09/18 14:30 Oxygen Flow Rate (L/min) 2 Oxygen Delivery Method Room Air Weight: 147.8 kg Body Mass Index (BMI) 37.6 Intake and Output for Last 24 Hours 05/07/18 05/08/18 05/10/18 23:59 23:59 00:59 Intake Total 800 / 800 Output Total 700 / 700 Balance 100 / 100 Microbiology Past 72 Hours 05/08/18 19:30 Respiratory Panel (PCR) - Final Mucosa - Nasopharyngeal 05/08/18 12:55 Influenza Types A,B Direct FA (JOCY) - Final Mucosa - Nose Laboratory Tests Past 24 Hrs 05/08/18 05/08/18 05/08/18 15:55 18:08 21:05 WBC RBC Hgb Hct MCV MCH MCHC RDW RDW Differential Plt Count MPV Immature Gran % (Auto) Neut % (Auto) Lymph % (Auto) [place] % (Auto) Eos % (Auto) Baso % (Auto) Absolute Neuts (auto) Absolute Lymphs (auto) Total Counted Platelet Estimate Hypochromasia Microcytosis Ovalocytes D-Dimer Quant (PE/DVT) 1.46 H* Sodium Potassium Chloride Carbon Dioxide Anion Gap BUN Creatinine Estim Creat Clear Calc Est GFR (MDRD) Af Amer Est GFR (MDRD) Non-Af BUN/Creatinine Ratio Glucose Calcium Troponin I 0.898 H* 0.898 H* TSH Blood Type Antibody Screen 05/09/18 05/09/18 05/09/18 00:00 06:50 11:14 WBC 4.9 RBC 4.55 L Hgb 10.5 L Hct 34.7 L MCV 76.3 L MCH 23.1 L MCHC 30.3 L RDW 19.9 H RDW Differential 55.4 H Plt Count 148 L MPV 9.5 Immature Gran % (Auto) 0.200 Neut % (Auto) 70.3 H Lymph % (Auto) 10.8 L [place] % (Auto) 14.8 H Eos % (Auto) 3.7 Baso % (Auto) 0.2 Absolute Neuts (auto) 3.5 Absolute Lymphs (auto) 0.53 L Total Counted Not Reportable Platelet Estimate ADEQUATE Hypochromasia 1+ Microcytosis 1+ Ovalocytes RARE D-Dimer Quant (PE/DVT) Sodium Potassium Chloride Carbon Dioxide Anion Gap BUN Creatinine Estim Creat Clear Calc Est GFR (MDRD) Af Amer Est GFR (MDRD) Non-Af BUN/Creatinine Ratio Glucose Calcium Troponin I 0.877 H* TSH 1.24 Blood Type Antibody Screen 05/09/18 05/09/18 11:14 13:12 WBC RBC Hgb Hct MCV MCH MCHC RDW RDW Differential Plt Count MPV Immature Gran % (Auto) Neut % (Auto) Lymph % (Auto) [place] % (Auto) Eos % (Auto) Baso % (Auto) Absolute Neuts (auto) Absolute Lymphs (auto) Total Counted Platelet Estimate Hypochromasia Microcytosis Ovalocytes D-Dimer Quant (PE/DVT) Sodium 137 Potassium 3.8 Chloride 107 Carbon Dioxide 21.0 Anion Gap 9 BUN 24 H Creatinine 1.27 Estim Creat Clear Calc 69.97 Est GFR (MDRD) Af Amer 72 Est GFR (MDRD) Non-Af 60 BUN/Creatinine Ratio 18.9 Glucose 97 Calcium 8.2 L Troponin I TSH Blood Type A POSITIVE Antibody Screen NEGATIVE Assessment/Plan This patient was seen in conjunction with ENDER Cruz. I have independently interviewed and examined the patient and reviewed pertinent historical, laboratory, and other data. Please refer to ENDER Cruz note for his patient's presentation, findings, and recommendations. I have reviewed and his note and concur with his documentation Patient was seen and examined. Admitted yesterday with A. fib with RVR secondary to acute viral syndrome Respiratory panel is negative. Troponins were elevated. Started on Lovenox as well as Plavix. Patient noted to be having bright red bleeding per rectum. Stable vitals. Drop in hemoglobin from 11.7-10.5. Physical Exam: Gen: Obese, appears comfortable, not pale, not jaundiced CVS:HS I +II, regular, no murmurs RESP: Diminished at lung bases GI: Full, soft, nontender, no ballotable organs EXT: Bilateral leg edema +1 ASSESSMENT: 1. Acute GI bleed 2. Acute NSTEMI, likely secondary to demand ischemia 3. A. fib with RVR 4. Acute community-acquired pneumonia, CT of the chest 5. COPD 6. History of CHF unclear subtype, no signs of acute exacerbation 7. CKD stage III 8. CAD status post CABG 9. Hypertension 10.Hyperlipidemia 11.Type 2 DM Plan: DC Lovenox, Plavix IV PPI, trend H&H General surgery consulted, plans on endoscopy Continue to monitor blood sugars with Accu-Cheks with insulin sliding Code Visit Inpatient E&M: 98322 Subs Hosp L3
--- NOTE | 2018-05-09 12:56 | PCM.CONS.C ---
Problem List (1) NSTEMI (non-ST elevated myocardial infarction) Status: Acute Reason for Consult Date of Consultation: 05/09/18 History of Present Illness: The patient is a 72 year old M with past medical history significant for coronary artery disease status post CABG 15 years ago. Since then, he has had numerous percutaneous interventions for heart attacks. He also has history of hypertension and COPD. According to him, he also has history of atrial fibrillation. According to him, he was started on Eliquis for anticoagulation for his atrial fibrillation in the past, however it was discontinued because of GI bleeding. Patient presented to the hospital this time with complaints of fatigue and malaise for the last few days. He also checked his temperature at home and it was noted to be 100.4 ?F. According to him, he has been coughing. Denies any chest pains. Positive shortness of breath. He went to an urgent care facility and they are in he was noted to have atrial fibrillation with rapid ventricular response. He was subsequently sent to the emergency room. As part of his workup, troponins were checked. They were noted to be elevated. Denies any palpitations. He denies any history of CVA or TIA. He has occasional ankle edema. [] Past Medical History Allergies/Adverse Reactions: Allergies codeine Adverse Reaction (Verified 05/08/18 11:42) Unknown Home Medications: Ambulatory Orders Medication Instructions Recorded Albuterol Inhaler [Ventolin Hfa 2 puff INHALATION Q6H PRN PRN 05/08/18 (SP)] Benzonatate 100 mg PO Q6H PRN 05/08/18 Clopidogrel Bisulfate [Plavix] 75 mg PO DAILY 05/08/18 Furosemide [Lasix] 40 mg PO DAILY 05/08/18 Isosorbide Mononitrate [Imdur] 60 mg PO DAILY 05/08/18 Metformin HCl 500 mg PO DAILY 05/08/18 Metoprolol Tartrate [Lopressor 100 mg PO BID 05/08/18 (Beta Crystal)] Maud-3/Dha/Epa/Fish Oil [Fish Oil 1 each PO DAILY 05/08/18 1,000 mg Softgel] Ranolazine [Ranexa] 1,000 mg PO DAILY 05/08/18 Sucralfate 1 gm PO TID 05/08/18 Tamsulosin HCl [Flomax] 0.4 mg PO DAILY 05/08/18 Topiramate [Topamax] 150 mg PO BID 05/08/18 Vitamin B Complex/Folic Acid 1 tab PO DAILY 05/08/18 [B-Stress Capsules] Past Medical History (Chronic Problems): Chronic Problems (Last Updated 05/08/18 @ 15:49 by Ke Kimball DO) CHF (congestive heart failure) (Chronic) COPD (chronic obstructive pulmonary disease) (Chronic) HTN (hypertension) (Chronic) Psychiatric History: No pertinent psych hx - *Family History Maternal History Items: Cancer Paternal History Items: Heart Disease Lives: Alone Smoking Status: Former smoker Tobacco Use: Non-smoker Alcohol: None Drugs: None Review of Systems - Review of Systems General: Reports: Fever, Fatigue, Malaise Cardiovascular: Reports: Shortness of Breath, Shortness of Breath at Rest, Shortness of Breath with Exertion, Peripheral Edema. Denies: Chest Discomfort, Chest Discomfort at Rest, Chest Discomfort with Exertion, Chest Pressure, Orthopnea, Palpitations, Lightheadedness, Dizziness, Near Syncope, Syncope Gastrointestinal: Reports: - - History of GI bleeding according to patient. Noted bright red blood per rectum this morning Neurological: Denies: History of TIA, History of CVA Endocrine: Denies: Heat Intolerance, Cold Intolerance Hematologic/ Lymphatic: Denies: Easy Brusing, Easy Bleeding Subjectve: Comfortable. No apparent distress. Objective: Vital Signs Temp Pulse Resp BP Pulse Ox 97.8 F 106 H 16 99/56 L 99 05/09/18 08:00 05/09/18 12:45 05/09/18 10:11 05/09/18 12:45 05/09/18 10:11 Oxygen Flow Rate (L/min) 2 Oxygen Delivery Method Room Air Weight: 147.8 kg Body Mass Index (BMI) 37.6 Intake and Output for Last 24 Hours 05/07/18 05/08/18 05/10/18 23:59 23:59 00:59 Intake Total 240 / 240 Output Total 700 / 700 Balance -460 / -460 General: Awake, Alert, Oriented x 3 HEENT: Atraumatic, Normocephalic Oral: Moist Mucosa Neck: Supple Lungs: Diminished [place] Bases Cardiovascular: Irregular Rhythm, Normal S1, Normal S2 Abdomen: Bowel Sounds Present, Soft Extremities: Bilateral Edema +1 Neurological: No Focal Motor or Sensory Deficit Psych/Mental Status: Appropriate 05/08/18 11:55: WBC 6.5, RBC 5.06, Hgb 11.7 L, Hct 38.2 L, MCV 75.5 L, MCH 23.1 L, MCHC 30.6 L, RDW 19.8 H, RDW Differential 54.1 H, Plt Count 180, MPV 10.0, Immature Gran % (Auto) 0.200, Neut % (Auto) 77.3 H, Lymph % (Auto) 8.2 L, [place] % (Auto) 13.6 H, Eos % (Auto) 0.5, Baso % (Auto) 0.2, Absolute Neuts (auto) 5.0, Total Counted Not Reportable 05/08/18 11:55: Sodium 134 L, Potassium 3.9, Chloride 106, Carbon Dioxide 20.0 L, Anion Gap 8, BUN 25 H, Creatinine 1.39 H, Est GFR (MDRD) Af Amer 65, Est GFR (MDRD) Non-Af 54 L, BUN/Creatinine Ratio 18.0, Glucose 115 H, Calcium 8.3 L, Troponin I 0.122 H 05/08/18 13:35: PT 15.3 H, INR 1.2, APTT 37.2 H 05/08/18 15:55: D-Dimer Quant (PE/DVT) 1.46 H* 05/08/18 18:08: Troponin I 0.898 H* 05/08/18 21:05: Troponin I 0.898 H* 05/09/18 00:00: Troponin I 0.877 H* 05/09/18 11:14: WBC 4.9, RBC 4.55 L, Hgb 10.5 L, Hct 34.7 L, MCV 76.3 L, MCH 23.1 L, MCHC 30.3 L, RDW 19.9 H, RDW Differential 55.4 H, Plt Count 148 L, MPV 9.5, Immature Gran % (Auto) 0.200, Neut % (Auto) 70.3 H, Lymph % (Auto) 10.8 L, [place] % (Auto) 14.8 H, Eos % (Auto) 3.7, Baso % (Auto) 0.2, Absolute Neuts (auto) 3.5, Total Counted Not Reportable 03/10/19 11:14: Sodium 137, Potassium 3.8, Chloride 107, Carbon Dioxide 21.0, Anion Gap 9, BUN 24 H, Creatinine 1.27, Est GFR (MDRD) Af Amer 72, Est GFR (MDRD) Non-Af 60, BUN/Creatinine Ratio 18.9, Glucose 97, Calcium 8.2 L Rhythm: Atrial fibrillation with rapid ventricular response EKG: Atrial fibrillation with rapid ventricular response ECHO: Stress Test: Cardiac Cath: PCI: CT Surgery: Holter monitor: EPS: PPM: CXR: Chest CT Scan: Assessment/Plan 1. Elevated troponin. Likely secondary to atrial fibrillation with rapid ventricular response with underlying coronary artery disease. Recommend checking a pharmacological stress test with imaging to evaluate for ischemia. 2. Atrial fibrillation with rapid ventricular response. Start on digoxin. Continue beta-crystal. No anticoagulation for now in view of his microcytic anemia and history of GI bleeding while on anticoagulation. Only start anticoagulation when GI evaluation complete and okay with gastroenterology. [place] with patient in detail. He understands and agrees. 3. Fever with cough. Manage as per internal medicine. 4. Check 2D echocardiogram with Doppler. 5. History of COPD. 6. Microcytic anemia. Reports of bright red blood per rectum today. Manage as per GI/internal medicine 7. History of CHF.
[2018-05-09] MEDS: 0.9% Normal Saline 1,000 ML 100 ML IV ×2 (13:06→22:28)
--- NOTE | 2018-05-09 14:42 | CON.PCM_ITS ---
Problem List (1) Rectal bleed Status: Acute Reason for Consult Date of Consultation: 05/09/18 Reason for Consultation: GI bleeding History of Present Illness: The patient is a 72 year old M Who was admitted to the hospital for A. fib RVR. The patient was noted to have increased cardiac enzymes. The patient was started on full therapeutic Lovenox on top of his normal Plavix. Patient began to have bright red bleeding in his stool which he reports was minimal. He says that he has had intermittent bleeding in his stool his anticoagulation before due to GI bleeding. He said he does not remember when his last colonoscopy was and he does not think he is ever had an EGD. He denies any melanotic stools. He says he has epigastric pain which has been going on for 40 years but in the last 6 months has been getting worse. Past Medical History Past Medical History (Chronic Problems): Chronic Problems (Last Updated 05/08/18 @ 15:49 by Ke Kimball DO) CHF (congestive heart failure) (Chronic) COPD (chronic obstructive pulmonary disease) (Chronic) HTN (hypertension) (Chronic) Medical History: Medical History (Last Updated 05/08/18 @ 15:49 by Ke Kimball DO) CAD (coronary artery disease) I25.10 CHF (congestive heart failure) I50.9 COPD (chronic obstructive pulmonary disease) J44.9 HTN (hypertension) I10 Allergies codeine Adverse Reaction (Verified 05/08/18 11:42) Unknown Home Medications: Ambulatory Orders Medication Instructions Recorded Albuterol Inhaler [Ventolin Hfa 2 puff INHALATION Q6H PRN PRN 05/08/18 (SP)] Benzonatate 100 mg PO Q6H PRN 05/08/18 Clopidogrel Bisulfate [Plavix] 75 mg PO DAILY 05/08/18 Furosemide [Lasix] 40 mg PO DAILY 05/08/18 Isosorbide Mononitrate [Imdur] 60 mg PO DAILY 05/08/18 Metformin HCl 500 mg PO DAILY 05/08/18 Metoprolol Tartrate [Lopressor 100 mg PO BID 05/08/18 (Beta Crystal)] [place]-3/Dha/Epa/Fish Oil [Fish Oil 1 each PO DAILY 05/08/18 1,000 mg Softgel] Ranolazine [Ranexa] 1,000 mg PO DAILY 05/08/18 Sucralfate 1 gm PO TID 05/08/18 Tamsulosin HCl [Flomax] 0.4 mg PO DAILY 05/08/18 Topiramate [Topamax] 150 mg PO BID 05/08/18 Vitamin B Complex/Folic Acid 1 tab PO DAILY 05/08/18 [B-Stress Capsules] Surgical History: Surgical History (Last Updated 05/08/18 @ 15:48 by Ke Kimball DO) 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 Denies: Diarrhea, Hematemesis, Melena, Vomiting Genitourinary: Denies: Dysuria Musculoskeletal: Denies: Joint Tenderness Skin: Denies: Jaundice Neurological: Denies: Difficulty swallowing Hematologic/ Lymphatic: Denies: Anemia Patient Problems: Active and Suspected Problems (Last Updated 05/08/18 @ 15:49 by Ke Kimball DO) Community acquired pneumonia (Acute) Atrial fibrillation with RVR (Acute) Chest pain (Acute) Elevated troponin (Acute) Influenza-like symptoms (Acute) CAD (coronary artery disease) (Acute) HLD (hyperlipidemia) (Acute) Diabetes (Acute) Viral URI (Acute) NSTEMI (non-ST elevated myocardial infarction) (Acute) Rectal bleed (Acute) - Physical Exam General: Alert, Oriented x3, Cooperative, No apparent distress HEENT: Atraumatic Neck: No JVD Lungs: Clear to auscultation, Normal air movement Cardiovascular: Regular rate Abdomen: Soft, Non-Distended Extremities: No clubbing Skin: No rashes Musculoskeletal: No Muscle Wasting Vital Signs Temp Pulse Resp BP Pulse Ox 97.8 F 106 H 16 99/56 L 99 05/09/18 08:00 05/09/18 12:45 05/09/18 10:11 05/09/18 12:45 05/09/18 10:11 Oxygen Flow Rate (L/min) 2 Oxygen Delivery Method Room Air Weight: 325 lb 13.491 oz Body Mass Index (BMI) 37.6 Intake and Output for Last 24 Hours 05/07/18 05/08/18 05/10/18 23:59 23:59 00:59 Intake Total 800 / 800 Output Total 700 / 700 Balance 100 / 100 Microbiology Past 72 Hours 05/08/18 19:30 Respiratory Panel (PCR) - Final Mucosa - Nasopharyngeal 05/08/18 12:55 Influenza Types A,B Direct FA (JOCY) - Final Mucosa - Nose Laboratory Tests Past 24 Hrs 05/08/18 05/08/18 05/08/18 13:35 15:55 18:08 WBC RBC Hgb Hct MCV MCH MCHC RDW RDW Differential Plt Count MPV Immature Gran % (Auto) Neut % (Auto) Lymph % (Auto) Lane % (Auto) Eos % (Auto) Baso % (Auto) Absolute Neuts (auto) Absolute Lymphs (auto) Total Counted Platelet Estimate Hypochromasia Microcytosis Ovalocytes PT 15.3 H INR 1.2 APTT 37.2 H D-Dimer Quant (PE/DVT) 1.46 H* Sodium Potassium Chloride Carbon Dioxide Anion Gap BUN Creatinine Estim Creat Clear Calc Est GFR (MDRD) Af Amer Est GFR (MDRD) Non-Af BUN/Creatinine Ratio Glucose Calcium Troponin I 0.898 H* TSH Blood Type Antibody Screen 05/08/18 05/09/18 05/09/18 21:05 00:00 06:50 WBC RBC Hgb Hct MCV MCH MCHC RDW RDW Differential Plt Count MPV Immature Gran % (Auto) Neut % (Auto) Lymph % (Auto) Lane % (Auto) Eos % (Auto) Baso % (Auto) Absolute Neuts (auto) Absolute Lymphs (auto) Total Counted Platelet Estimate Hypochromasia Microcytosis Ovalocytes PT INR APTT D-Dimer Quant (PE/DVT) Sodium Potassium Chloride Carbon Dioxide Anion Gap BUN Creatinine Estim Creat Clear Calc Est GFR (MDRD) Af Amer Est GFR (MDRD) Non-Af BUN/Creatinine Ratio Glucose Calcium Troponin I 0.898 H* 0.877 H* TSH 1.24 Blood Type Antibody Screen 05/09/18 05/09/18 05/09/18 11:14 11:14 13:12 WBC 4.9 RBC 4.55 L Hgb 10.5 L Hct 34.7 L MCV 76.3 L MCH 23.1 L MCHC 30.3 L RDW 19.9 H RDW Differential 55.4 H Plt Count 148 L MPV 9.5 Immature Gran % (Auto) 0.200 Neut % (Auto) 70.3 H Lymph % (Auto) 10.[address] % (Auto) 14.8 H Eos % (Auto) 3.7 Baso % (Auto) 0.2 Absolute Neuts (auto) 3.5 Absolute Lymphs (auto) 0.53 L Total Counted Not Reportable Platelet Estimate ADEQUATE Hypochromasia 1+ Microcytosis 1+ Ovalocytes RARE PT INR APTT D-Dimer Quant (PE/DVT) Sodium 137 Potassium 3.8 Chloride 107 Carbon Dioxide 21.0 Anion Gap 9 BUN 24 H Creatinine 1.27 Estim Creat Clear Calc 69.97 Est GFR (MDRD) Af Amer 72 Est GFR (MDRD) Non-Af 60 BUN/Creatinine Ratio 18.9 Glucose 97 Calcium 8.2 L Troponin I TSH Blood Type A POSITIVE Antibody Screen NEGATIVE Assessment/Plan All Active Problems (Last Updated 05/08/18 @ 15:49 by Ke Kimball DO) Community acquired pneumonia (Acute) Atrial fibrillation with RVR (Acute) Chest pain (Acute) Elevated troponin (Acute) Influenza-like symptoms (Acute) CAD (coronary artery disease) (Acute) HLD (hyperlipidemia) (Acute) Diabetes (Acute) Viral URI (Acute) NSTEMI (non-ST elevated myocardial infarction) (Acute) Rectal bleed (Acute) 72-year-old male with GI bleeding 1. I discussed the case with the talent acquisition assistant [employer] scout. The plan is to perform an upper and lower endoscopy tomorrow. He believes that this is safe for the patient. He will also order a pharmacologic stress test. He also said that the anticoagulation could be held. 2. I will hold his Lovenox and Plavix. I have started him on a clear liquid diet and ordered a GoLYTELY bowel prep for this afternoon. N.p.o. after midnight. Plan for EGD and colonoscopy tomorrow. 3. I explained endoscopy in detail to the patient. I explained the risks including but not limited to stroke or heart attack with anesthesia, perforation of the GI tract, bleeding, infection. I explained that any of these could necessitate further emergency surgery. The patient understands and all questions were answered sufficiently. The patient wishes to proceed with procedure. Gavino Krishnan MD Pager: [facility] [address] [place] [address] [address] [place] [address] Office:
[2018-05-09] MEDS: Digoxin 250 MCG/ML Ampul 500 MCG IV (14:54)
[2018-05-09 16:40] LABS: Bedside Glucose 99 mg/dL (70-110)
[2018-05-09] MEDS: Electrolyte Solution/Peg's 4000 ML PO (18:02)
[2018-05-09 19:04] LABS: Hematocrit 32.2 % (40-54); Hemoglobin 9.7 g/dl (13.0-16.5)
[2018-05-09] MEDS: Digoxin 250 MCG Tablet PO (19:46)
--- NOTE | 2018-05-09 21:00 | NURSING ---
BLOOD SUAGR 71. JELLO WITH SUGAR GIVEN. PT DENIES ANY COMPLAINTS
[2018-05-10] VITALS (12 sets, daily range): BP systolic 98–118; BP diastolic 68–84; PULSE 71–94; RESP 16–17; TEMP 36.2–36.4; O2SAT 94–100
[2018-05-10 00:42] LABS: Hematocrit 34.1 % (40-54); Hemoglobin 10.6 g/dl (13.0-16.5)
[2018-05-10 01:04] LABS: AST(SGOT) 20 U/L (15-37); Alanine Aminotransfer ALT/SGPT 13 U/L (16-61); Albumin, Serum 3.1 g/dL (3.2-5.0); Alkaline Phosphatase 84 U/L (45-117); Bilirubin, Direct 0.26 mg/dL (0.00-0.30); Globulin 3.6 g/dL (2.2-4.2); Protein, Total 6.7 g/dL (6.4-8.2)
--- NOTE | 2018-05-10 05:00 | EKG12_ITS ---
Test Reason : AM EKG Blood Pressure : / mmHG Vent. Rate : 084 BPM Atrial Rate : 097 BPM P-R Int : 000 ms QRS Dur : 106 ms QT Int : 390 ms P-R-T Axes : 000 023 054 degrees QTc Int : 460 ms Atrial fibrillation with premature ventricular or aberrantly conducted complexes Nonspecific ST abnormality Abnormal ECG When compared with ECG of 08-MAY-2018 11:50, MANUAL COMPARISON REQUIRED, DATA IS UNCONFIRMED Confirmed by DILLON ALSTON, THERESE ([id number]), script editor SATURNINO MARTEL ([id number]) on 05/14/2018 9:44:29 AM Referred By: JARAD GUTIERREZ Confirmed By:THERESE CARRANZA MD
[2018-05-10 05:40] LABS: International Normalized Ratio 1.3; Prothrombin Time (Protime)PT. 16.4 SECONDS (11.7-14.9)
[2018-05-10 05:41] LABS: Anion Gap 9 (5-15); BUN 25 mg/dL (7-18); Calcium,Total 7.9 mg/dL (8.5-10.1); Chloride 111 mmol/L (98-107); Creatinine, Serum 1.19 mg/dL (0.70-1.30); EST Glomerular Filtration Rate 64 mL/min (>60); Est Glom Filt Rate - Afr Amer 78 mL/min (>60); Estimated Creatinine Clearance 74.67 ml/min; Glucose 74 mg/dL (74-106); Partial Thromboplast Time 43.8 Seconds (24.1-36.2); Potassium 3.6 mmol/L (3.5-5.1); Sodium Level 141 mmol/L (136-145)
[2018-05-10 06:00] LABS: Absolute Lymphocyte Count 0.98 X10^3/ul (0.83-4.51); Absolute Neutrophil Count 2.7 X10^3/uL (2.0-7.7); Basophil# 0.02 X10^3/uL; Basophil% 0.4 % (0-1); Eosinophil# 0.25 X10^3/uL; Eosinophils% 5.4 % (0-5); Hematocrit 32.8 % (40-54); Lymphocyte # 0.98 X10^3/ul (4.0); Mean Corp Hgb Conc 30.5 g/gl (32-36); Mean Corpuscular Hgb 23.1 pg (27.0-32.0); Mean Corpuscular Volume 75.8 fL (80-94); Mean Platelet Vol. 9.8 fl (6.2-12.0); Monocyte# 0.74 X10^3/uL; Monocyte% 15.8 % (0-10); Neutrophil # 2.67 X10^3/uL (2.7-7.7); Neutrophil % 57.2 % (47-70); Platelet Count 155 K/mm3 (150-450); RBC Distribution Width CV 19.9 % (11.6-14.6); RBC Distribution Width SD 55.2 fl (35.1-43.9); Red Blood Count 4.33 M/mm3 (4.6-6.2); White Blood Count 4.7 K/mm3 (4.4-11.0)
[2018-05-10 06:09] LABS: POSITIVE COUNT NO; POSITIVE DIFFERENTIAL NO; POSITIVE MORPHOLOGY NO
[2018-05-10 06:24] LABS: Digoxin Level 0.66 ng/mL (0.80-2.00)
[2018-05-10 07:01] LABS: Bedside Glucose 77 mg/dL (70-110)
--- NOTE | 2018-05-10 08:00 | NURSING ---
[facility] NOTIFIED THAT PT IS TO HAVE ENDO PROCEDURES AT 1015 AND MUST BE IN ENDO PRIOR TO THAT. STRESS TEST MAY BE HELD IF NEEDED FOR PT TO BE IN ENDO PRIOR TO 1015. [facility] STATES THEY MUST START STRESS TEST D/T MED HAS BEEN PULLED. ENDO NOTIFIED TO COORDINATE W/[facility].
[2018-05-10 08:28] LABS: Hemoglobin A1c 6.1 % (4.2-6.3)
--- NOTE | 2018-05-10 08:30 | PCM.PN.SRG ---
Patient Problems: Active and Suspected Problems (Last Updated 05/08/18 @ 15:49 by Ke Kimball DO) Community acquired pneumonia (Acute) Atrial fibrillation with RVR (Acute) Chest pain (Acute) Elevated troponin (Acute) Influenza-like symptoms (Acute) CAD (coronary artery disease) (Acute) HLD (hyperlipidemia) (Acute) Diabetes (Acute) Viral URI (Acute) NSTEMI (non-ST elevated myocardial infarction) (Acute) Rectal bleed (Acute) Subjective: Patient had some bleeding during bowel prep. - Physical Exam General: Alert, Oriented x3, Cooperative Neck: No JVD Lungs: Normal air movement Abdomen: Soft, Non Tender, Non-Distended Vital Signs Temp Pulse Resp BP Pulse Ox 97.3 F L 90 17 111/81 H 97 05/10/18 05:35 05/10/18 05:35 05/10/18 05:35 05/10/18 05:35 05/10/18 07:32 Oxygen Flow Rate (L/min) 2 Oxygen Delivery Method Room Air Weight: 325 lb 13.491 oz Body Mass Index (BMI) 37.6 Intake and Output for Last 24 Hours 05/08/18 05/09/18 05/10/18 22:59 23:59 23:59 Intake Total 563 / 563 Output Total Balance 563 / 563 Microbiology Past 72 Hours 05/09/18 20:44 Legionella Antigen - Final Urine, Clean Catch 05/09/18 20:44 Streptococcus pneumoniae Antigen (M - Final Urine, Clean Catch 05/08/18 19:30 Respiratory Panel (PCR) - Final Mucosa - Nasopharyngeal 05/08/18 12:55 Influenza Types A,B Direct FA (JOCY) - Final Mucosa - Nose Laboratory Tests Past 24 Hrs 05/09/18 05/09/18 05/09/18 11:14 11:14 13:12 WBC 4.9 RBC 4.55 L Hgb 10.5 L Hct 34.7 L MCV 76.3 L MCH 23.1 L MCHC 30.3 L RDW 19.9 H RDW Differential 55.4 H Plt Count 148 L MPV 9.5 Immature Gran % (Auto) 0.200 Neut % (Auto) 70.3 H Lymph % (Auto) 10.8 L [place] % (Auto) 14.8 H Eos % (Auto) 3.7 Baso % (Auto) 0.2 Absolute Neuts (auto) 3.5 Absolute Lymphs (auto) 0.53 L Total Counted Not Reportable Platelet Estimate ADEQUATE Hypochromasia 1+ Microcytosis 1+ Ovalocytes RARE PT INR APTT Sodium 137 Potassium 3.8 Chloride 107 Carbon Dioxide 21.0 Anion Gap 9 BUN 24 H Creatinine 1.27 Estim Creat Clear Calc 69.97 Est GFR (MDRD) Af Amer 72 Est GFR (MDRD) Non-Af 60 BUN/Creatinine Ratio 18.9 Glucose 97 Hemoglobin A1c Calcium 8.2 L Total Bilirubin Direct Bilirubin AST ALT Alkaline Phosphatase Total Protein Albumin Globulin Digoxin Blood Type A POSITIVE Antibody Screen NEGATIVE 05/09/18 05/10/18 05/10/18 18:30 00:30 00:30 WBC RBC Hgb 9.7 L 10.6 L Hct 32.2 L 34.1 L MCV MCH MCHC RDW RDW Differential Plt Count MPV Immature Gran % (Auto) Neut % (Auto) Lymph % (Auto) [place] % (Auto) Eos % (Auto) Baso % (Auto) Absolute Neuts (auto) Absolute Lymphs (auto) Total Counted Platelet Estimate Hypochromasia Microcytosis Ovalocytes PT INR APTT Sodium Potassium Chloride Carbon Dioxide Anion Gap BUN Creatinine Estim Creat Clear Calc Est GFR (MDRD) Af Amer Est GFR (MDRD) Non-Af BUN/Creatinine Ratio Glucose Hemoglobin A1c Calcium Total Bilirubin 0.60 Direct Bilirubin 0.26 AST 20 ALT 13 L Alkaline Phosphatase 84 Total Protein 6.7 Albumin 3.1 L Globulin 3.6 Digoxin Blood Type Antibody Screen 05/10/18 05/10/18 05/10/18 05:05 05:05 05:05 WBC 4.7 RBC 4.33 L Hgb 10.0 L Hct 32.8 L MCV 75.8 L MCH 23.1 L MCHC 30.5 L RDW 19.9 H RDW Differential 55.2 H Plt Count 155 MPV 9.8 Immature Gran % (Auto) 0.200 Neut % (Auto) 57.2 Lymph % (Auto) 21.0 [place] % (Auto) 15.8 H Eos % (Auto) 5.4 H Baso % (Auto) 0.4 Absolute Neuts (auto) 2.7 Absolute Lymphs (auto) 0.98 Total Counted Not Reportable Platelet Estimate Hypochromasia Microcytosis Ovalocytes PT INR APTT Sodium 141 Potassium 3.6 Chloride 111 H Carbon Dioxide 21.0 Anion Gap 9 BUN 25 H Creatinine 1.19 Estim Creat Clear Calc 74.67 Est GFR (MDRD) Af Amer 78 Est GFR (MDRD) Non-Af 64 BUN/Creatinine Ratio 21.0 H Glucose 74 Hemoglobin A1c Calcium 7.9 L Total Bilirubin Direct Bilirubin AST ALT Alkaline Phosphatase Total Protein Albumin Globulin Digoxin 0.66 L Blood Type Antibody Screen 05/10/18 05/10/18 05:05 05:05 WBC RBC Hgb Hct MCV MCH MCHC RDW RDW Differential Plt Count MPV Immature Gran % (Auto) Neut % (Auto) Lymph % (Auto) [place] % (Auto) Eos % (Auto) Baso % (Auto) Absolute Neuts (auto) Absolute Lymphs (auto) Total Counted Platelet Estimate Hypochromasia Microcytosis Ovalocytes PT 16.4 H INR 1.3 APTT 43.8 H Sodium Potassium Chloride Carbon Dioxide Anion Gap BUN Creatinine Estim Creat Clear Calc Est GFR (MDRD) Af Amer Est GFR (MDRD) Non-Af BUN/Creatinine Ratio Glucose Hemoglobin A1c 6.1 Calcium Total Bilirubin Direct Bilirubin AST ALT Alkaline Phosphatase Total Protein Albumin Globulin Digoxin Blood Type Antibody Screen POC Glucose 05/10/18 05/09/18 06:42 16:36 POC Glucose 77 99 Medical Necessity - Tobacco Use Smoking Status: Former smoker Tobacco Use: Non-smoker Assessment/Plan All Active Problems (Last Updated 05/08/18 @ 15:49 by Ke Kimball DO) Community acquired pneumonia (Acute) Atrial fibrillation with RVR (Acute) Chest pain (Acute) Elevated troponin (Acute) Influenza-like symptoms (Acute) CAD (coronary artery disease) (Acute) HLD (hyperlipidemia) (Acute) Diabetes (Acute) Viral URI (Acute) NSTEMI (non-ST elevated myocardial infarction) (Acute) Rectal bleed (Acute) 72-year-old male GI bleed 1. Patient's hemoglobin is stable. I will take the patient for upper and lower endoscopy today. He will have a pharmacologic stress test after that. Gavino Krishnan MD Pager: [facility] [address] [place] [address], [address] [place] [address] Office:
--- NOTE | 2018-05-10 09:50 | STRESSREP ---
Stress Test Report Pharmacologic myocardial perfusion stress test. 72-year-old man with a history of coronary artery disease. Resting EKG demonstrates atrial fibrillation with a rate of 86 bpm occasional premature ventricular complexes noted resting blood pressure 126/80 mmHg. 0.4 mg of regadenoson was infused per usual protocol followed by rapid intravenous saline flush injection continuous EKG monitoring was performed. The maximum heart rate attained was 107 bpm which was 71% of maximum predicted heart rate patient maintained atrial fibrillation throughout the recording. The resting blood pressure 126/80 with a final blood pressure 120/84. Myocardial perfusion protocol. 14.0 mCi of significant technetium 99m sestamibi was injected at rest. 0.4 mg regadenoson was infused per usual protocol peak infusion 44.8 mCi of technetium 99m sestamibi was injected stress images were obtained stress and rest images were reconstructed and compared in the short axis vertical long horizontal long axis. Gated images were also obtained per Perfusion SPECT analysis. Review of the stress images demonstrate a large defect involving the mid anterior wall extending to the apex and the inferior apical wall. There is also mildly reduced perfusion noted in the mid anterior septal wall. The mid lateral wall also has a perfusion defect. The resting images demonstrate evidence of improvement of perfusion noted in the anteroseptal wall as well as a small portion of the anterior apical wall. The mid lateral wall appears to be fixed with only minimal sanaz-infarct ischemia noted. Gated SPECT analysis: The gated ejection fraction is estimated to be 46% with regional wall motion abnormalities noted. Conclusion: Abnormal myocardial perfusion stress test with evidence of anteroseptal ischemia. Mild distal anterior ischemia. Mild sanaz-infarct ischemia around the lateral distribution. 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
--- NOTE | 2018-05-10 10:15 | COLBX_PTH ---
PATIENT: Jaime Ma [facility] U#:[id number] AGE/SX: 72/M ROOM: [facility] RE05/08/[address]: Dr. Brii Fowler DO : 1945 BED: 1 DIS: 05/10/2018 SPEC #: [id number] RECD: 05/10/18 10:45 STATUS: KIERAN REHarshad #: [id number] ANAYA: 05/10/18 10:[address]: Gavino Krishnan DEPT: SURGICAL PATHOLOGY RECD BY: Fiona Chery ENTERED: 05/10/18 11:43 SP TYPE: COLON BX OTHR DR: MD Dr. Brii Johns DO Dr. Darrell Widmer, MD Dr. Eric Jopperi, Tissues: A - COLON BIOPSY Procedures: Frozen Section (charge) Surgery Specimen Level IV HEADER OPERATION: Colonoscopy, [place] [place] DIAGNOSIS: GI bleed TISSUE SUBMITTED: A - Biopsy at 20 cm sent for frozen at 1043, B - Biopsy at 20 cm sent for permanent FROZEN SECTION DIAGNOSIS A. Colon at 20 cm, biopsy: Consistent with adenocarcinoma. AM:josefina 05/10/18 MICROSCOPIC DIAGNOSIS A. Colon at 20 cm, biopsy: Consistent with invasive adenocarcinoma. B. Colonic biopsy at 20 cm, biopsy: Invasive well to moderately differentiated adenocarcinoma. AM:josefina 05/11/18 MICROSCOPIC DESCRIPTION Slides are reviewed. GROSS DESCRIPTION A - Received fresh for frozen section consultation labeled with the patient's name is a specimen designated biopsy at 20 cm. The specimen consists of three irregular fragments of pink-holloway soft tissue that in aggregate measure 0.3 x 0.2 x 0.1 cm. The specimen is submitted in its entirety for frozen section consultation in one block. B - Received in fixative is one container labeled with the patient's name and designated biopsy at 20 cm. The specimen consists of multiple irregular fragments of light holloway soft tissue that in aggregate measure 1 x 0.5 x 0.1 cm. The specimen is totally submitted in one cassette. / AM:josefina 05/10/18 TC:0 CPT: 28945 x2, [id number]
--- NOTE | 2018-05-10 10:48 | OP.ENDO_ITS ---
05/10/2018 Fortunato Tesfaye Re : Upper GI endoscopy procedure for Jaime Ma Dear Mera This procedure was performed on Thursday, May 10, 2018. My impressions and recommendations are as follows: Impressions : - Normal esophagus. - Normal stomach. - Normal examined duodenum. - No specimens collected. Recommendations : - Resume previous diet. - The patient has taken no previous anticoagulant or antiplatelet agents and therefore does not require instructions for their resumption. My findings are described in the full procedure note, which is enclosed. If I can be of further assistance, please feel free to contact me at Doctor phone number(s): , Work: . Sincerely, Gavino Krishnan MD 05/10/2018 10:47:47 AM This report has been signed electronically.
--- NOTE | 2018-05-10 10:51 | OP.ENDO_ITS ---
05/10/2018 Fortunato Tesfaye Re : Colonoscopy procedure for Jaime Lawr Mera This procedure was performed on Thursday, May 10, 2018. My impressions and recommendations are as follows: Impressions : - Preparation of the colon was poor. - Likely malignant partially obstructing tumor in the recto-sigmoid colon. Biopsied. - The examination was otherwise normal on direct and retroflexion views. Recommendations : - Return patient to hospital hook for ongoing care. - Resume previous diet. - Repeat colonoscopy date to be determined after pending pathology results are reviewed for surveillance based on pathology results. - The patient has taken no previous anticoagulant or antiplatelet agents and therefore does not require instructions for their resumption. My findings are described in the full procedure note, which is enclosed. If I can be of further assistance, please feel free to contact me at Doctor phone number(s): , Work: . Sincerely, Gavino Krishnan MD 05/10/2018 10:51:37 AM This report has been signed electronically.
[2018-05-10] MEDS: 0.9% Normal Saline 1,000 ML 100 ML IV (11:42)
[2018-05-10] MEDS: Topiramate 50 MG Tablet 150 MG PO (11:57)
[2018-05-10] MEDS: Ranolazine 500 MG Tablet 1000 MG PO (11:57)
[2018-05-10] MEDS: Isosorbide Mononitrate 60 MG Tablet PO (11:57)
[2018-05-10] MEDS: Tamsulosin HCl 0.4 MG Capsule PO (11:57)
[2018-05-10] MEDS: Metoprolol Tartrate 100 MG Tablet PO (11:57)
[2018-05-10] MEDS: Sucralfate 1 GM Tablet PO (11:57)
[2018-05-10] MEDS: Digoxin 125 MCG Tablet PO (11:57)
[2018-05-10] MEDS: Azithromycin 250 MG Tablet 500 MG PO (11:58)
--- NOTE | 2018-05-10 12:00 | CASEMGMT ---
Pt has [facility] and [place] coverage. Clinicals faxed to [place] at this time. Dr. Krishnan would like pt transferred and is speaking to pt at this time. According to [facility] website, the following are in-network tertiary facilities: [place], [facility], [facility], and . Call to Selina at [place] transfer center at this time and she is updated on transfer to [facility] at this time for cardiac ischemia and rectal mass w/ active bleeding per Dr. Krishnan. Selina voices no further questions/concerns/needs at this time. SStcaridad RN CM
[2018-05-10 12:28] LABS: Ferritin 35 ng/mL (26-388); Iron Binding Capacity,Total 276 ug/dL (250-450)
[2018-05-10 12:45] LABS: Bedside Glucose 84 mg/dL (70-110)
[2018-05-10] MEDS: Ceftriaxone 1 GM/50 ML BAG IV (12:47)
[2018-05-10 13:20] LABS: Hematocrit 32.9 % (40-54); Hemoglobin 9.9 g/dl (13.0-16.5)
--- NOTE | 2018-05-10 14:52 | DS.PCM_ITS ---
Addendum entered and electronically signed by ENDER Cruz 05/10/18 15:21: Code Visit Addendum: There is also a questionable mass in the right breast. Original Note: Discharge Date and Diagnosis - Problem List Patient Problems: Active and Suspected Problems (Last Updated 05/08/18 @ 15:49 by Ke Kimball DO) Community acquired pneumonia (Acute) Atrial fibrillation with RVR (Acute) Chest pain (Acute) Elevated troponin (Acute) Influenza-like symptoms (Acute) CAD (coronary artery disease) (Acute) HLD (hyperlipidemia) (Acute) Diabetes (Acute) Viral URI (Acute) NSTEMI (non-ST elevated myocardial infarction) (Acute) Rectal bleed (Acute) Date of Admission: 05/08/18 Date of Discharge: 05/10/18 - Primary Discharge Diagnosis Active and Suspected Problems (Last Updated 05/08/18 @ 15:49 by Ke Kimball DO) NSTEMI, hx CAD, CABG, abnormal stress test Afib with RVR Acute blood loss anemia 2/2 GI bleed 2/2 colonic mass - adenocarcinoma Community acquired pna presumed pneumococcal COPD without acute exacerbation Hx of diastolic CHF unclear subtype, no exacerbation CKDIII HTN DMt2 - Secondary Discharge Diagnosis Chronic Problems (Last Updated 05/08/18 @ 15:49 by Ke Kimball DO) CHF (congestive heart failure) (Chronic) COPD (chronic obstructive pulmonary disease) (Chronic) HTN (hypertension) (Chronic) Hospital Course and Treatment Imaging Results: 05/10/18 05:55 Nuclear Stress Test - Chemical [NM] AM (NON MEDS) Conclusion: Abnormal myocardial perfusion stress test with evidence of anteroseptal ischemia. Mild distal anterior ischemia. Mild sanaz-infarct ischemia around the lateral distribution. 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 CT/CTA Chest W/WO Contrast IMPRESSION: 1. No evidence of central pulmonary embolism. Suboptimal evaluation of the peripheral branches. 2. Bronchiectatic and fibrotic changes. 3. Mild left upper lobe infiltrate/atelectasis. 4. Prominent mediastinal nodes which could be reactive. 5. Questionable density/mass in the right retroareolar region. Correlation with clinical findings and right breast ultrasound are recommended. RAD/Chest PA and Lateral IMPRESSION: Bilateral pulmonary interstitial prominence, right more than left. Consults: Cardiology - [facility] Gen surgery - [facility] Operations: None Procedures: Colonoscopy, Stress test Summary of Care Provided: Hospital course: The patient is a 72 year old M with pmhx of CAD with prior CABG, Atrial fib, unspecified CHF, HTN, DMt2, CKD III, GI bleed (stomach bleeding - no longer takes eliqus due to this), HLD, who presented to the ER with c/o flulike illness marked by SOB, chest tightness, productive cough, subjective fevers. CXR was negative, and flu test was negative. He had an elevated troponin, and was in atrial fibrillation with RVR. He was given additional metoprolol with fair rate control. He was started on therapeutic lovenox. He was felt to have afib/RVR 2/2 an acute viral syndrom such as influenza. His troponin increased overnight to 0.898. Cardiology was consulted. A d dimer was obtained, was elevated, and a CTA chest was then obtained. This demonstrated no PE, but did show infiltrates not picked up on the CXR. He was started on antibiotics with rocephin and azithromycin. He was felt to have a NSTEMI. The following morning he developed some drops of bright red blood in his stool. Blood thinning agents were stopped. His heart rate increased again, and cardiology started him on digoxin to which he responded well (had borderline low blood pressure). General surgery was consulted regarding the blood in his stool. He did admit to periodically having blood in his stool that he attributed to a GI bleed that he has had in the past (stomach bleed), stating it last happened a few months prior and he had not been worked up. Cardiology and general surgery agreed to a stress test and colonoscopy the following morning. The stress test was abnormal with results as above. Then he went for colonoscopy and was found to have a mass that was oozing blood. A frozen section was performed showing adenocarcinoma. The patient was felt to need surgery to address the mass, and also that he would likely need a cardiac intervention with regards to the NSTEMI and abnormal stress. He was agreeable to transfer to [facility] and he was accepted under the care of Dr. Huertas. He was transferred in stable condition. This patient was seen by Matthew Person PA-C under the supervision of Dr. Fowler. [] Patient Problems: Active and Suspected Problems (Last Updated 05/08/18 @ 15:49 by Ke Kimball DO) Community acquired pneumonia (Acute) Atrial fibrillation with RVR (Acute) Chest pain (Acute) Elevated troponin (Acute) Influenza-like symptoms (Acute) CAD (coronary artery disease) (Acute) HLD (hyperlipidemia) (Acute) Diabetes (Acute) Viral URI (Acute) NSTEMI (non-ST elevated myocardial infarction) (Acute) Rectal bleed (Acute) - Physical Exam General: Alert, Oriented x3, Cooperative HEENT: Atraumatic, PERRLA, EOMI, Normocephalic Neck: Supple, No JVD, Negative Carotid Bruits Lungs: Clear to auscultation, Normal air movement Cardiovascular: No murmurs, Irregular Rate Abdomen: Bowel Sounds Present, Soft, Non Tender, Obese Extremities: No edema, Capillary Refill Less than 3 Seconds Skin: No rashes, No breakdown Musculoskeletal: No Tenderness to Palpation of Joints or Extremities Neurological: Cranial nerves II-XII grossly intact Psych/Mental Status: Normal Affect, Appropriate, Alert and oriented to time, place, person, mood and affect Vital Signs Temp Pulse Resp BP Pulse Ox 97.5 F L 85 16 116/80 100 05/10/18 14:34 05/10/18 14:34 05/10/18 14:34 05/10/18 14:34 05/10/18 14:34 Oxygen Flow Rate (L/min) 2 Oxygen Delivery Method Room Air Weight: 325 lb 13.491 oz Body Mass Index (BMI) 37.6 Intake and Output for Last 24 Hours 05/08/18 05/09/18 05/10/18 22:59 23:59 23:59 Intake Total 832 / 832 Output Total Balance 832 / 832 Microbiology Past 72 Hours 05/09/18 20:44 Legionella Antigen - Final Urine, Clean Catch 05/09/18 20:44 Streptococcus pneumoniae Antigen (M - Final Urine, Clean Catch 05/08/18 19:30 Respiratory Panel (PCR) - Final Mucosa - Nasopharyngeal 05/08/18 12:55 Influenza Types A,B Direct FA (JOCY) - Final Mucosa - Nose Laboratory Tests Past 24 Hrs 05/09/18 05/10/18 05/10/18 18:30 00:30 00:30 WBC RBC Hgb 9.7 L 10.6 L Hct 32.2 L 34.1 L MCV MCH MCHC RDW RDW Differential Plt Count MPV Immature Gran % (Auto) Neut % (Auto) Lymph % (Auto) [place] % (Auto) Eos % (Auto) Baso % (Auto) Absolute Neuts (auto) Absolute Lymphs (auto) Total Counted PT INR APTT Sodium Potassium Chloride Carbon Dioxide Anion Gap BUN Creatinine Estim Creat Clear Calc Est GFR (MDRD) Af Amer Est GFR (MDRD) Non-Af BUN/Creatinine Ratio Glucose Hemoglobin A1c Calcium TIBC Ferritin Total Bilirubin 0.60 Direct Bilirubin 0.26 AST 20 ALT 13 L Alkaline Phosphatase 84 Total Protein 6.7 Albumin 3.1 L Globulin 3.6 Digoxin 05/10/18 05/10/18 05/10/18 05:05 05:05 05:05 WBC 4.7 RBC 4.33 L Hgb 10.0 L Hct 32.8 L MCV 75.8 L MCH 23.1 L MCHC 30.5 L RDW 19.9 H RDW Differential 55.2 H Plt Count 155 MPV 9.8 Immature Gran % (Auto) 0.200 Neut % (Auto) 57.2 Lymph % (Auto) 21.0 [place] % (Auto) 15.8 H Eos % (Auto) 5.4 H Baso % (Auto) 0.4 Absolute Neuts (auto) 2.7 Absolute Lymphs (auto) 0.98 Total Counted Not Reportable PT INR APTT Sodium 141 Potassium 3.6 Chloride 111 H Carbon Dioxide 21.0 Anion Gap 9 BUN 25 H Creatinine 1.19 Estim Creat Clear Calc 74.67 Est GFR (MDRD) Af Amer 78 Est GFR (MDRD) Non-Af 64 BUN/Creatinine Ratio 21.0 H Glucose 74 Hemoglobin A1c Calcium 7.9 L TIBC Ferritin Total Bilirubin Direct Bilirubin AST ALT Alkaline Phosphatase Total Protein Albumin Globulin Digoxin 0.66 L 05/10/18 05/10/18 05/10/18 05:05 05:05 05:05 WBC RBC Hgb Hct MCV MCH MCHC RDW RDW Differential Plt Count MPV Immature Gran % (Auto) Neut % (Auto) Lymph % (Auto) [place] % (Auto) Eos % (Auto) Baso % (Auto) Absolute Neuts (auto) Absolute Lymphs (auto) Total Counted PT 16.4 H INR 1.3 APTT 43.8 H Sodium Potassium Chloride Carbon Dioxide Anion Gap BUN Creatinine Estim Creat Clear Calc Est GFR (MDRD) Af Amer Est GFR (MDRD) Non-Af BUN/Creatinine Ratio Glucose Hemoglobin A1c 6.1 Calcium TIBC 276 Ferritin 35 Total Bilirubin Direct Bilirubin AST ALT Alkaline Phosphatase Total Protein Albumin Globulin Digoxin 05/10/18 13:10 WBC RBC Hgb 9.9 L Hct 32.9 L MCV MCH MCHC RDW RDW Differential Plt Count MPV Immature Gran % (Auto) Neut % (Auto) Lymph % (Auto) [place] % (Auto) Eos % (Auto) Baso % (Auto) Absolute Neuts (auto) Absolute Lymphs (auto) Total Counted PT INR APTT Sodium Potassium Chloride Carbon Dioxide Anion Gap BUN Creatinine Estim Creat Clear Calc Est GFR (MDRD) Af Amer Est GFR (MDRD) Non-Af BUN/Creatinine Ratio Glucose Hemoglobin A1c Calcium TIBC Ferritin Total Bilirubin Direct Bilirubin AST ALT Alkaline Phosphatase Total Protein Albumin Globulin Digoxin POC Glucose 05/10/18 05/10/18 05/09/18 11:49 06:42 16:36 POC Glucose 84 77 99 Discharge Diet: - - as directed by receiving facility Discharge Activity: - - as directed by receiving facility Home Medications: Medications to take at Discharge Albuterol Inhaler [Ventolin Hfa (SP)] 2 puff INHALATION Q6H PRN PRN 05/08/18 Benzonatate 100 mg PO Q6H PRN 05/08/18 Clopidogrel Bisulfate [Plavix] 75 mg PO DAILY 05/08/18 Furosemide [Lasix] 40 mg PO DAILY 05/08/18 Isosorbide Mononitrate [Imdur] 60 mg PO DAILY 05/08/18 Metformin HCl 500 mg PO DAILY 05/08/18 Metoprolol Tartrate [Lopressor (Beta Crystal)] 100 mg PO BID 05/08/18 [place]-3/Dha/Epa/Fish Oil [Fish Oil 1,000 mg Softgel] 1 each PO DAILY 05/08/18 Ranolazine [Ranexa] 1,000 mg PO DAILY 05/08/18 Sucralfate 1 gm PO TID 05/08/18 Tamsulosin HCl [Flomax] 0.4 mg PO DAILY 05/08/18 Topiramate [Topamax] 150 mg PO BID 05/08/18 Vitamin B Complex/Folic Acid [B-Stress Capsules] 1 tab PO DAILY 05/08/18 Primary Care Physician: Fortunato Tesfaye MD [Primary Care Provider] - Disposition: Acute care Hospital Minutes spent on discharge:: 40 Patient Condition:: Stable Medical Necessity - Tobacco Use Smoking Status: Former smoker Tobacco Use: Non-smoker Meaningful Use Info Meaningful Use Diagnoses (Choose all that apply): None applicable
--- NOTE | 2018-05-10 15:08 | PCA ---
Patient did not want us to notify any one transfer stated his daughter in law would be calling him.
[2018-05-11 15:46] LABS: Bedside Glucose 59 mg/dL (70-110)
[2018-05-11 15:46] LABS: Bedside Glucose 71 mg/dL (70-110)
== END 2018-05-10 15:32 | disposition short-term general hospital (02) | DRG 280 ==
LOC: ED 14:58 → PCU 16:16
PROVIDERS: Anesthesiology; Internal Medicine; Internal Medicine Cardiovascular Disease; Physician Assistant; Surgery; Emergency Provider Emergency Medicine; Family Provider Family Medicine; PCP Family Medicine; Visit Provider Internal Medicine
PROC: 0DJD8ZZ Inspection of Lower Intestinal Tract, Via Natural or Artificial Opening Endoscopic (ICD-10-PCS; CPT 45378; principal; 2018-05-10 10:10)
DX: I21.4 Non-ST elevation (NSTEMI) myocardial infarction (principal); J13 Pneumonia due to Streptococcus pneumoniae; I13.0 Hypertensive heart and chronic kidney disease with heart failure and stage 1 through stage 4 chronic kidney disease, or unspecified chronic kidney disease; C19 Malignant neoplasm of rectosigmoid junction; K92.2 Gastrointestinal hemorrhage, unspecified; D62 Acute posthemorrhagic anemia; E78.5 Hyperlipidemia, unspecified; I25.10 Atherosclerotic heart disease of native coronary artery without angina pectoris; J44.9 Chronic obstructive pulmonary disease, unspecified; N63.0 Unspecified lump in unspecified breast; I48.91 Unspecified atrial fibrillation; E11.22 Type 2 diabetes mellitus with diabetic chronic kidney disease; N18.3 Chronic kidney disease, stage 3 (moderate); I50.9 Heart failure, unspecified; Z87.891 Personal history of nicotine dependence; Z95.1 Presence of aortocoronary bypass graft
CPT/HCPCS: 36415; 71046; 71275; 78452; 80048; 80076; 80162; 82728; 82962; 83036; 83550; 84443; 84484; 85014; 85018; 85025; 85379; 85610; 85730; 86850; 86900; 87449; 87633; 87804; 88305; 88331; 93005; 93017; 97162; 97166; 99285; A9500; J7030; J7040; Q9957; Q9967; A4216; J2405; J2785